=== PATIENT | male | born 1970 | race Caucasian/White ===

== ENCOUNTER 2017-12-25 07:27 | Emergency (ER) | payer MEDICARE, MEDICAID ==
[~2017-12-25] VITALS: Ht 172.7 cm; Wt 94.0 kg
[~2017-12-25 07:27] MED LIST: OMEP20TA23 PO; QUET-1 PO
[2017-12-25 07:35] VITALS: BP 131/80
[2017-12-25] MEDS ORDERED: NAPR-56 PO (08:48)
== END 2017-12-25 08:58 | disposition home or self-care (01) ==
LOC: ER 07:28
DX: M75.82 Other shoulder lesions, left shoulder (principal); G89.29 Other chronic pain; K21.9 Gastro-esophageal reflux disease without esophagitis; F12.10 Cannabis abuse, uncomplicated; Z79.899 Other long term (current) drug therapy
CPT/HCPCS: 73030; 99284

== ENCOUNTER 2017-12-31 21:45 | Emergency (ER) | payer MEDICARE, MEDICAID ==
[~2017-12-31] VITALS: Ht 172.7 cm; Wt 95.0 kg
[~2017-12-31 21:45] MED LIST changes: +NAPR-56 PO
[2017-12-31] MEDS ORDERED: IBUP-1985 PO (22:14)
[2017-12-31 22:16] VITALS: BP 143/97
== END 2017-12-31 22:19 | disposition home or self-care (01) ==
LOC: ER 21:46
DX: R07.89 Other chest pain (principal); G89.29 Other chronic pain; K21.9 Gastro-esophageal reflux disease without esophagitis
CPT/HCPCS: 99282

== ENCOUNTER 2018-01-10 21:34 | Emergency (ER) | payer MEDICARE, MEDICAID ==
[~2018-01-10] VITALS: Ht 172.7 cm; Wt 94.5 kg
[~2018-01-10 21:34] MED LIST changes: +IBUP-1985 PO
[2018-01-10 22:26] LABS: BASOPHILS % (AUTO) 0.3 % (0-1); EOSINOPHILS # (AUTO) 0.3 X10'3 (0-0.9); EOSINOPHILS % (AUTO) 3.9 % (0-6); HEMATOCRIT 45.6 % (42.0-52.0); HEMOGLOBIN 15.9 g/dl (14.0-17.9); LYMPHOCYTES # (AUTO) 3.1 X10'3 (1.1-4.8); LYMPHOCYTES % (AUTO) 37.1 % (21-51); MEAN CORPUSCULAR HGB CONC 34.8 % (33.0-36.5); MEAN CORPUSCULAR VOLUME 89.2 FL (78-98); MEAN PLATELET VOLUME 6.6 FL (7.4-10.4); MONOCYTES # (AUTO) 0.8 X10'3 (0-0.9); NEUTROPHILS # (AUTO) 4.1 X10'3 (1.8-7.7); NEUTROPHILS % (AUTO) 48.7 % (42-75); PLATELET COUNT 310 X10'3 (140-440); RED BLOOD COUNT 5.12 X10'6 (4.70-6.10); RED CELL DISTRIBUTION WIDTH 13.4 % (11.5-14.5); WHITE BLOOD COUNT 8.4 X10'3 (4.5-11.0)
[2018-01-10 22:31] LABS: CLARITY,URINE CLEAR (Clear); COLOR,URINE STRAW (Yellow); GLUCOSE, URINE NEGATIVE (Neg); KETONES,URINE NEGATIVE (Neg); LEUKOCYTE ESTERASE ,URINE NEGATIVE (Neg); NITRITES, URINE NEGATIVE (Neg); PROTEIN,URINE NEGATIVE (Neg); UROBILINOGEN,URINE 0.2 E.U/dL (0.2-1.0)
[2018-01-10 22:36] LABS: OCCULT BLOOD,URINE TRACE-LYSED (Neg)
[2018-01-10 22:41] LABS: ALANINE AMINOTRANSFERASE 32 U/L (12-78); ALBUMIN 3.7 G/DL (3.4-5.0); ALKALINE PHOSPHATASE 98 IU/L (46-116); ANION GAP 9 (8-16); ASPARTATE AMINO TRANSFERASE 25 U/L (10-37); BILIRUBIN,TOTAL 0.2 MG/DL (0.1-1.0); BLOOD UREA NITROGEN 19 MG/DL (7-18); BUN/CREATININE RATIO 20.7 (5.4-32.0); CALCIUM 9.5 MG/DL (8.5-10.1); CHLORIDE 107 MMOL/L (99-107); CREATININE 0.92 MG/DL (0.60-1.10); GLUCOSE 92 MG/DL (70-104); POTASSIUM 3.9 MMOL/L (3.5-5.1); SODIUM 143 MMOL/L (135-145); TOTAL CARBON DIOXIDE 27.5 MMOL/L (24-32); TOTAL PROTEIN 7.3 G/DL (6.4-8.2); eGFR 89 ML/MIN
[2018-01-10 22:41] LABS: UA COLLECTION TYPE CLN CATCH MIDSTREAM
[2018-01-10 22:46] LABS: BACTERIA,URINE NONE SEEN /HPF (Neg); RBC,URINE 0-2 /HPF (0-2); SQUAMOUS EPITHELIAL CELL,UR FEW /LPF (FEW); WBC,URINE 0-4 /HPF (0-4)
[2018-01-10 23:07] LABS: D-DIMER 0.42 MG/L FEU (0-0.50)
[2018-01-10 23:14] LABS: LIPASE 157 U/L (73-393)
[2018-01-11] MEDS ORDERED: IBUP-1984 PO (00:05)
[2018-01-11 00:20] VITALS: BP 133/94
== END 2018-01-11 00:21 | disposition home or self-care (01) ==
LOC: ER 21:34
DX: M54.6 Pain in thoracic spine (principal); R10.11 Right upper quadrant pain; J44.9 Chronic obstructive pulmonary disease, unspecified; K21.9 Gastro-esophageal reflux disease without esophagitis; G89.29 Other chronic pain; M10.9 Gout, unspecified; F12.10 Cannabis abuse, uncomplicated; F17.200 Nicotine dependence, unspecified, uncomplicated; Z88.5 Allergy status to narcotic agent; Z79.899 Other long term (current) drug therapy
CPT/HCPCS: 36415; 71101; 76700; 80053; 81001; 83690; 84484; 85025; 85379; 85610; 93005; 99285

== ENCOUNTER 2018-02-14 18:19 | Emergency (ER) | payer MEDICARE, MEDICAID ==
[~2018-02-14] VITALS: Ht 175.3 cm; Wt 78.6 kg
[~2018-02-14 18:19] MED LIST changes: -NAPR-56 PO
[2018-02-14 18:43] VITALS: BP 119/87
== END 2018-02-14 19:43 | disposition left against medical advice (07) ==
LOC: ER 18:19
DX: Z00.8 Encounter for other general examination (principal); Z53.21 Procedure and treatment not carried out due to patient leaving prior to being seen by health care provider

== ENCOUNTER 2018-04-17 09:48 | Emergency (ER) | payer MEDICARE, MEDICAID ==
[~2018-04-17] VITALS: Ht 167.6 cm; Wt 98.0 kg
[2018-04-17 09:53] VITALS: BP 144/90
[2018-04-17] MEDS ORDERED: NAPR-56 PO (10:20)
[2018-04-17] MEDS ORDERED: ketorolac tromethamine 15mg/ml inj. IM ONE (10:20)
== END 2018-04-17 10:46 | disposition home or self-care (01) ==
LOC: ER 09:49
DX: M25.511 Pain in right shoulder (principal); J44.9 Chronic obstructive pulmonary disease, unspecified; K21.9 Gastro-esophageal reflux disease without esophagitis; G89.29 Other chronic pain; F17.200 Nicotine dependence, unspecified, uncomplicated; F12.90 Cannabis use, unspecified, uncomplicated; Z88.5 Allergy status to narcotic agent; Z79.899 Other long term (current) drug therapy
CPT/HCPCS: 96372; 99283; J1885

== ENCOUNTER 2018-04-27 08:05 | Emergency (ER) | payer MEDICARE, MEDICAID ==
[~2018-04-27] VITALS: Ht 175.3 cm; Wt 99.0 kg
[~2018-04-27 08:05] MED LIST changes: +NAPR-56 PO
[2018-04-27 08:28] VITALS: BP 125/80
[2018-04-27] MEDS ORDERED: HYDR-565 PO (09:31)
[2018-04-27] MEDS ORDERED: IBUP-1984 PO (09:31)
== END 2018-04-27 10:03 | disposition home or self-care (01) ==
LOC: ER 08:06
DX: M75.31 Calcific tendinitis of right shoulder (principal); J44.9 Chronic obstructive pulmonary disease, unspecified; K21.9 Gastro-esophageal reflux disease without esophagitis; G89.29 Other chronic pain; F12.90 Cannabis use, unspecified, uncomplicated; F17.200 Nicotine dependence, unspecified, uncomplicated; Z88.5 Allergy status to narcotic agent; Z79.899 Other long term (current) drug therapy
CPT/HCPCS: 73030; 99284; A4565

== ENCOUNTER 2018-05-03 19:01 | Emergency (ER) | payer MEDICARE, MEDICAID ==
[~2018-05-03] VITALS: Ht 175.3 cm; Wt 99.0 kg
[~2018-05-03 19:01] MED LIST changes: +HYDR-565 PO; +IBUP-1984 PO
[2018-05-03] MEDS ORDERED: ketorolac trometh inj. 60 MG/2 ML VIAL IM ONE (21:30)
[2018-05-03] MEDS ORDERED: HYDROcodone/acetaminophen 10/325mg tab PO ONE (21:30)
[2018-05-03 21:49] VITALS: BP 143/100
== END 2018-05-03 21:52 | disposition home or self-care (01) ==
LOC: ER 19:02
DX: M77.9 Enthesopathy, unspecified (principal); M25.511 Pain in right shoulder; J44.9 Chronic obstructive pulmonary disease, unspecified; G89.29 Other chronic pain; K21.9 Gastro-esophageal reflux disease without esophagitis; M10.9 Gout, unspecified; F17.200 Nicotine dependence, unspecified, uncomplicated; F12.90 Cannabis use, unspecified, uncomplicated; Z79.899 Other long term (current) drug therapy; Z88.5 Allergy status to narcotic agent
CPT/HCPCS: 96372; 99283; A4565; J1885

== ENCOUNTER → 2018-05-07 | Emergency (ER) | payer MEDICARE, MEDICAID ==
[~2018-05-07] VITALS: Ht 175.3 cm; Wt 91.0 kg
[2018-05-07 10:09] VITALS: BP 139/99
== END | disposition home or self-care (01) ==
LOC: ER 10:08
DX: M25.511 Pain in right shoulder (principal); J44.9 Chronic obstructive pulmonary disease, unspecified; K21.9 Gastro-esophageal reflux disease without esophagitis; G89.29 Other chronic pain; F12.90 Cannabis use, unspecified, uncomplicated; Z88.5 Allergy status to narcotic agent; Z79.899 Other long term (current) drug therapy
CPT/HCPCS: 99281

== ENCOUNTER 2018-05-19 23:00 | Inpatient (IN) | payer MEDICARE, OTHER ==
[~2018-05-19] VITALS: Ht 175.3 cm; Wt 113.0 kg
[~2018-05-19 23:00] MED LIST changes: +DOXE10CA3 PO; +LORA2TAB96 PO; -NAPR-56 PO; +OMEP-50 PO; +PRAZ2CAP2 PO
[2018-05-20] MEDS ORDERED: albuterol 2.5 MG/3 ML nebule NEB ONE (01:05)
[2018-05-20 02:45] VITALS: BP 130/83
[2018-05-20] MEDS ORDERED: ibuprofen tablet 400 MG TABLET PO PRN (02:45)
[2018-05-20] MEDS ORDERED: HYDROcodone/acetaminophen 10/325mg tab PO PRN (02:45)
[2018-05-20] MEDS ORDERED: LORazepam 1 MG tablet PO PRN (02:55)
[2018-05-20] MEDS ORDERED: pantoprazole 40mg Tablet.DR PO SCH (07:30)
[2018-05-20] MEDS ORDERED: NICOTINE POLACRILEX 4 MG LOZENGE BC PRN (07:55)
[2018-05-20 07:58] VITALS: BP 145/95
[2018-05-20] MEDS ORDERED: nicotine 21mg patch - 24 hr TD SCH ×2 (08:00)
[2018-05-20 08:43] LABS: CHOLESTEROL 176 MG/DL (0-200); HDL CHOLESTEROL 22 MG/DL (35-60); HEMOGLOBIN A1C 5.6 % (4.5-6.2); LDL CHOLESTEROL 89 MG/DL (50-100); TRIGLYCERIDES 488 MG/DL (20-135)
[2018-05-20] MEDS ORDERED: nicotine prolacrilex 2mg gum BC PRN (09:00)
[2018-05-20] MEDS ORDERED: ALBU18HF2 INH (20:22)
[2018-05-20] MEDS ORDERED: prazosin 1mg capsule PO SCH (21:00)
[2018-05-20] MEDS ORDERED: doxepin 10mg capsule PO SCH (21:00)
== END 2018-05-20 08:55 | disposition left against medical advice (07) | DRG 885 ==
LOC: ADULT MH 23:00
PROVIDERS: ADMIT Psychiatry & Neurology Psychiatry; ATTEND Psychiatry & Neurology Psychiatry
DX: F31.9 Bipolar disorder, unspecified (principal); R45.851 Suicidal ideations; F10.20 Alcohol dependence, uncomplicated; F12.20 Cannabis dependence, uncomplicated; F17.200 Nicotine dependence, unspecified, uncomplicated; F79 Unspecified intellectual disabilities; F81.9 Developmental disorder of scholastic skills, unspecified; M10.9 Gout, unspecified; Z59.0 Homelessness; Z81.8 Family history of other mental and behavioral disorders; Z82.0 Family history of epilepsy and other diseases of the nervous system; Z82.49 Family history of ischemic heart disease and other diseases of the circulatory system
CPT/HCPCS: 36415; 80061; 83036; 87070

== ENCOUNTER 2018-05-20 19:20 | Emergency (ER) | payer MEDICARE, OTHER ==
[~2018-05-20] VITALS: Ht 175.3 cm; Wt 90.9 kg
[~2018-05-20 19:20] MED LIST changes: -IBUP-1985 PO; -OMEP20TA23 PO; -QUET-1 PO
[2018-05-20] MEDS ORDERED: ipratropium/albuterol 3ml nebule NEB ONE (20:20)
[2018-05-20] MEDS ORDERED: ALBU18HF2 INH (20:22)
[2018-05-20 20:48] VITALS: BP 145/99
[2018-05-23] MEDS ORDERED: PRAZ1CAP5 PO (19:55)
[2018-05-23] MEDS ORDERED: DOXE10CA2 (19:55)
[2018-05-23] MEDS ORDERED: LORA2TAB (19:55)
== END 2018-05-20 20:50 | disposition home or self-care (01) ==
LOC: ER 19:20
DX: R06.02 Shortness of breath (principal); R05 Cough; J44.9 Chronic obstructive pulmonary disease, unspecified; K21.9 Gastro-esophageal reflux disease without esophagitis; G89.29 Other chronic pain; F17.210 Nicotine dependence, cigarettes, uncomplicated; F12.90 Cannabis use, unspecified, uncomplicated; Z59.0 Homelessness; Z88.5 Allergy status to narcotic agent; Z79.899 Other long term (current) drug therapy
CPT/HCPCS: 93005; 94640; 94760; 99283

== ENCOUNTER 2018-05-21 17:45 | Emergency (ER) | payer MEDICARE, OTHER ==
[~2018-05-21] VITALS: Ht 175.3 cm; Wt 90.9 kg
[~2018-05-21 17:45] MED LIST changes: +ALBU18HF2 INH
[2018-05-21 18:15] LABS: BASOPHILS % (AUTO) 0.4 % (0-1); EOSINOPHILS # (AUTO) 0.2 X10'3 (0-0.9); EOSINOPHILS % (AUTO) 1.9 % (0-6); HEMATOCRIT 45.9 % (42.0-52.0); HEMOGLOBIN 15.9 g/dl (14.0-17.9); LYMPHOCYTES # (AUTO) 2.8 X10'3 (1.1-4.8); LYMPHOCYTES % (AUTO) 30.7 % (21-51); MEAN CORPUSCULAR HEMOGLOBIN 30.7 PG (27.0-31.0); MEAN CORPUSCULAR HGB CONC 34.6 % (33.0-36.5); MEAN CORPUSCULAR VOLUME 88.8 FL (78-98); MEAN PLATELET VOLUME 6.4 FL (7.4-10.4); MONOCYTES # (AUTO) 1.1 X10'3 (0-0.9); MONOCYTES % (AUTO) 11.5 % (2-12); NEUTROPHILS # (AUTO) 5.1 X10'3 (1.8-7.7); NEUTROPHILS % (AUTO) 55.5 % (42-75); PLATELET COUNT 319 X10'3 (140-440); RED BLOOD COUNT 5.17 X10'6 (4.70-6.10); RED CELL DISTRIBUTION WIDTH 13.8 % (11.5-14.5); WHITE BLOOD COUNT 9.3 X10'3 (4.5-11.0)
[2018-05-21 18:23] LABS: INR 0.9 INR; PARTIAL THROMBOPLASTIN TIME 25 SECONDS (22-32); PROTHROMBIN TIME 9.8 SECONDS (9.0-12.0)
[2018-05-21 18:30] LABS: ALANINE AMINOTRANSFERASE 48 U/L (12-78); ALBUMIN 3.6 G/DL (3.4-5.0); ALKALINE PHOSPHATASE 100 IU/L (46-116); ANION GAP 8 (8-16); ASPARTATE AMINO TRANSFERASE 27 U/L (10-37); BILIRUBIN,TOTAL 0.2 MG/DL (0.1-1.0); BLOOD UREA NITROGEN 16 MG/DL (7-18); BUN/CREATININE RATIO 13.8 (5.4-32.0); CHLORIDE 105 MMOL/L (99-107); CREATININE 1.16 MG/DL (0.60-1.10); GLUCOSE 141 MG/DL (70-104); POTASSIUM 3.3 MMOL/L (3.5-5.1); SODIUM 140 MMOL/L (135-145); TOTAL CARBON DIOXIDE 26.7 MMOL/L (24-32); TOTAL PROTEIN 7.2 G/DL (6.4-8.2); eGFR 68 ML/MIN
[2018-05-21 20:13] VITALS: BP 135/88
[2018-05-23] MEDS ORDERED: PRAZ1CAP5 PO (19:55)
[2018-05-23] MEDS ORDERED: DOXE10CA2 (19:55)
[2018-05-23] MEDS ORDERED: LORA2TAB (19:55)
== END 2018-05-21 20:14 | disposition home or self-care (01) ==
LOC: ER 17:45
DX: R06.02 Shortness of breath (principal); J44.9 Chronic obstructive pulmonary disease, unspecified; K21.9 Gastro-esophageal reflux disease without esophagitis; G89.29 Other chronic pain; F12.90 Cannabis use, unspecified, uncomplicated; Z59.0 Homelessness; Z88.5 Allergy status to narcotic agent; Z88.8 Allergy status to other drugs, medicaments and biological substances; Z79.899 Other long term (current) drug therapy
CPT/HCPCS: 36415; 71045; 80053; 83880; 84484; 85025; 85610; 85730; 93005; 99285

== ENCOUNTER 2018-05-25 18:10 | Emergency (ER) | payer MEDICARE, OTHER ==
[~2018-05-25] VITALS: Ht 1670.2 cm; Wt 88.0 kg
[~2018-05-25 18:10] MED LIST changes: +DOXE10CA2; +LORA2TAB; +PRAZ1CAP5 PO
[2018-05-25] MEDS ORDERED: ARIP400S3 IM (18:54)
[2018-05-25 21:06] LABS: BASOPHILS % (AUTO) 0.5 % (0-1); EOSINOPHILS # (AUTO) 0.2 X10'3 (0-0.9); EOSINOPHILS % (AUTO) 2.4 % (0-6); HEMATOCRIT 45.8 % (42.0-52.0); LYMPHOCYTES # (AUTO) 2.5 X10'3 (1.1-4.8); MEAN CORPUSCULAR HEMOGLOBIN 30.7 PG (27.0-31.0); MEAN CORPUSCULAR HGB CONC 35.1 % (33.0-36.5); MEAN CORPUSCULAR VOLUME 87.7 FL (78-98); MEAN PLATELET VOLUME 6.1 FL (7.4-10.4); MONOCYTES # (AUTO) 0.9 X10'3 (0-0.9); MONOCYTES % (AUTO) 10.3 % (2-12); NEUTROPHILS # (AUTO) 5.5 X10'3 (1.8-7.7); NEUTROPHILS % (AUTO) 59.8 % (42-75); PLATELET COUNT 291 X10'3 (140-440); RED BLOOD COUNT 5.22 X10'6 (4.70-6.10); RED CELL DISTRIBUTION WIDTH 13.3 % (11.5-14.5); WHITE BLOOD COUNT 9.1 X10'3 (4.5-11.0)
[2018-05-25 21:09] LABS: CLARITY,URINE CLEAR (Clear); COLOR,URINE YELLOW (Yellow); GLUCOSE, URINE NEGATIVE (Neg); KETONES,URINE NEGATIVE (Neg); LEUKOCYTE ESTERASE ,URINE NEGATIVE (Neg); NITRITES, URINE NEGATIVE (Neg); OCCULT BLOOD,URINE NEGATIVE (Neg); PH,URINE 5.5 (4.8-8.0); PROTEIN,URINE 30 mg/dl (Neg)
[2018-05-25 21:11] LABS: UA COLLECTION TYPE NON-SPECIFIED
[2018-05-25] MEDS ORDERED: nicotine 21mg patch - 24 hr TD ONE (21:15)
[2018-05-25 21:17] LABS: BACTERIA,URINE FEW /HPF (Neg); RBC,URINE 0-2 /HPF (0-2)
[2018-05-25 21:18] LABS: CAL OXALATE CRYSTALS 2+ /HPF (NEGATIVE); MUCUS STRANDS MANY /LPF (Neg); SQUAMOUS EPITHELIAL CELL,UR FEW /LPF (FEW)
[2018-05-25 21:19] LABS: ALANINE AMINOTRANSFERASE 46 U/L (12-78); ALBUMIN 3.7 G/DL (3.4-5.0); ALKALINE PHOSPHATASE 100 IU/L (46-116); ANION GAP 10 (8-16); ASPARTATE AMINO TRANSFERASE 31 U/L (10-37); BILIRUBIN,TOTAL 0.5 MG/DL (0.1-1.0); BLOOD UREA NITROGEN 17 MG/DL (7-18); BUN/CREATININE RATIO 16.3 (5.4-32.0); CALCIUM 9.1 MG/DL (8.5-10.1); CHLORIDE 108 MMOL/L (99-107); CREATININE 1.04 MG/DL (0.60-1.10); GLUCOSE 99 MG/DL (70-104); POTASSIUM 3.9 MMOL/L (3.5-5.1); SODIUM 145 MMOL/L (135-145); TOTAL CARBON DIOXIDE 27.4 MMOL/L (24-32); TOTAL PROTEIN 7.4 G/DL (6.4-8.2); eGFR 77 ML/MIN
[2018-05-25 21:19] LABS: URINE AMPHETAMINE SCREEN NEGATIVE (Neg); URINE BARBITUATE SCREEN NEGATIVE (Neg); URINE BENZODIAZEPINES SCREEN NEGATIVE (Neg); URINE CANNABINOID SCREEN NEGATIVE (Neg); URINE COCAINE SCREEN NEGATIVE (Neg); URINE METHADONE SCREEN NEGATIVE (Neg); URINE OPIATE SCREEN NEGATIVE (Neg); URINE PHENCYCLIDINE SCREEN NEGATIVE (Neg)
[2018-05-25 21:28] LABS: ETHANOL < 0.010 GM/DL (0.0-0.010)
[2018-05-25] MEDS ORDERED: ibuprofen tablet 400 MG TABLET PO PRN (23:50)
[2018-05-25] MEDS ORDERED: HYDROcodone/acetaminophen 10/325mg tab PO PRN (23:50)
[2018-05-26] MEDS ORDERED: LORazepam 1 MG tablet PO PRN (00:15)
[2018-05-26] MEDS ORDERED: prazosin 1mg capsule PO SCH (00:15)
[2018-05-26] MEDS ORDERED: doxepin 10mg capsule PO SCH (00:29)
[2018-05-26] MEDS ORDERED: pantoprazole 40mg Tablet.DR PO SCH (07:30)
[2018-05-26 14:36] VITALS: BP 114/74
[2018-05-30] MEDS ORDERED: non-formulary drug (Aripiprazole (Abilify Maintena) 400 MG) IM SCH (08:00)
== END 2018-05-26 13:30 | disposition home or self-care (01) ==
LOC: ER 18:11
DX: F32.9 Major depressive disorder, single episode, unspecified (principal); R45.851 Suicidal ideations; J44.9 Chronic obstructive pulmonary disease, unspecified; K21.9 Gastro-esophageal reflux disease without esophagitis; F12.90 Cannabis use, unspecified, uncomplicated; Z59.0 Homelessness; Z88.5 Allergy status to narcotic agent; Z79.899 Other long term (current) drug therapy
CPT/HCPCS: 36415; 80053; 80305; 80320; 81001; 84443; 85025; 99284

== ENCOUNTER 2018-05-28 20:29 | Emergency (ER) | payer MEDICARE, OTHER ==
[~2018-05-28] VITALS: Ht 175.3 cm; Wt 98.0 kg
[~2018-05-28 20:29] MED LIST changes: +ARIP400S3 IM; -DOXE10CA2; -LORA2TAB; -PRAZ2CAP2 PO
[2018-05-28] MEDS ORDERED: normal saline 1000ml 1,000 ML IV ONE ×2 (21:05)
[2018-05-28 21:09] LABS: BASOPHILS % (AUTO) 0.5 % (0-1); EOSINOPHILS # (AUTO) 0.2 X10'3 (0-0.9); HEMATOCRIT 44.6 % (42.0-52.0); HEMOGLOBIN 15.6 g/dl (14.0-17.9); LYMPHOCYTES # (AUTO) 2.5 X10'3 (1.1-4.8); LYMPHOCYTES % (AUTO) 28.1 % (21-51); MEAN CORPUSCULAR HGB CONC 34.9 % (33.0-36.5); MEAN CORPUSCULAR VOLUME 88.7 FL (78-98); MEAN PLATELET VOLUME 6.8 FL (7.4-10.4); MONOCYTES # (AUTO) 0.9 X10'3 (0-0.9); MONOCYTES % (AUTO) 9.6 % (2-12); NEUTROPHILS # (AUTO) 5.4 X10'3 (1.8-7.7); NEUTROPHILS % (AUTO) 59.8 % (42-75); PLATELET COUNT 272 X10'3 (140-440); RED BLOOD COUNT 5.03 X10'6 (4.70-6.10); RED CELL DISTRIBUTION WIDTH 13.1 % (11.5-14.5)
[2018-05-28 21:24] LABS: ALANINE AMINOTRANSFERASE 49 U/L (12-78); ALBUMIN 3.6 G/DL (3.4-5.0); ALKALINE PHOSPHATASE 97 IU/L (46-116); ANION GAP 10 (8-16); ASPARTATE AMINO TRANSFERASE 29 U/L (10-37); BILIRUBIN,TOTAL 0.3 MG/DL (0.1-1.0); BLOOD UREA NITROGEN 15 MG/DL (7-18); BUN/CREATININE RATIO 12.7 (5.4-32.0); CALCIUM 8.5 MG/DL (8.5-10.1); CHLORIDE 106 MMOL/L (99-107); CREATININE 1.18 MG/DL (0.60-1.10); GLUCOSE 192 MG/DL (70-104); POTASSIUM 3.2 MMOL/L (3.5-5.1); SODIUM 140 MMOL/L (135-145); TOTAL CARBON DIOXIDE 23.8 MMOL/L (24-32); TOTAL PROTEIN 7.2 G/DL (6.4-8.2); eGFR 66 ML/MIN
[2018-05-28 21:33] LABS: ETHANOL < 0.010 GM/DL (0.0-0.010)
[2018-05-28 21:39] LABS: ACETAMINOPHEN < 2.0 UG/ML (10-30)
[2018-05-28] MEDS ORDERED: potassium Cl 20 mEq SR tablet PO STA (22:16)
[2018-05-28 23:11] LABS: CLARITY,URINE CLEAR (Clear); COLOR,URINE YELLOW (Yellow); GLUCOSE, URINE NEGATIVE (Neg); KETONES,URINE NEGATIVE (Neg); LEUKOCYTE ESTERASE ,URINE NEGATIVE (Neg); NITRITES, URINE NEGATIVE (Neg); OCCULT BLOOD,URINE NEGATIVE (Neg); PROTEIN,URINE 30 mg/dl (Neg)
[2018-05-28 23:12] LABS: URINE AMPHETAMINE SCREEN NEGATIVE (Neg); URINE BARBITUATE SCREEN NEGATIVE (Neg); URINE BENZODIAZEPINES SCREEN NEGATIVE (Neg); URINE CANNABINOID SCREEN NEGATIVE (Neg); URINE COCAINE SCREEN NEGATIVE (Neg); URINE METHADONE SCREEN NEGATIVE (Neg); URINE OPIATE SCREEN NEGATIVE (Neg); URINE PHENCYCLIDINE SCREEN NEGATIVE (Neg)
[2018-05-28 23:15] LABS: UA COLLECTION TYPE NON-SPECIFIED
[2018-05-28 23:16] LABS: BACTERIA,URINE FEW /HPF (Neg); MUCUS STRANDS MODERATE /LPF (Neg); RBC,URINE 0-2 /HPF (0-2); SQUAMOUS EPITHELIAL CELL,UR FEW /LPF (FEW); WBC,URINE 0-4 /HPF (0-4)
[2018-05-28 23:27] VITALS: BP 151/81
== END 2018-05-29 00:48 | disposition home or self-care (01) ==
LOC: ER 20:29
DX: T42.4X1A Poisoning by benzodiazepines, accidental (unintentional), initial encounter (principal); J44.9 Chronic obstructive pulmonary disease, unspecified; K21.9 Gastro-esophageal reflux disease without esophagitis; G89.29 Other chronic pain; F12.90 Cannabis use, unspecified, uncomplicated; Z59.0 Homelessness; Z88.5 Allergy status to narcotic agent; Z79.899 Other long term (current) drug therapy; Y92.89 Other specified places as the place of occurrence of the external cause
CPT/HCPCS: 36415; 80053; 80305; 80320; 80329; 81001; 82948; 84443; 85025; 96360; 99284; A4353; J7030

== ENCOUNTER 2018-05-29 21:43 | Emergency (ER) | payer MEDICARE, OTHER ==
[~2018-05-29] VITALS: Ht 597.6 cm; Wt 100.0 kg
[2018-05-29] MEDS ORDERED: nicotine 14mg patch - 24hr TD ONE (22:15)
[2018-05-29 22:38] LABS: BASOPHILS # (AUTO) 0.1 X10'3 (0-0.2); BASOPHILS % (AUTO) 0.7 % (0-1); EOSINOPHILS # (AUTO) 0.3 X10'3 (0-0.9); EOSINOPHILS % (AUTO) 3.8 % (0-6); HEMATOCRIT 43.4 % (42.0-52.0); LYMPHOCYTES # (AUTO) 2.8 X10'3 (1.1-4.8); LYMPHOCYTES % (AUTO) 37.1 % (21-51); MEAN CORPUSCULAR HEMOGLOBIN 30.6 PG (27.0-31.0); MEAN CORPUSCULAR HGB CONC 34.5 % (33.0-36.5); MEAN CORPUSCULAR VOLUME 88.7 FL (78-98); MEAN PLATELET VOLUME 6.5 FL (7.4-10.4); MONOCYTES # (AUTO) 0.9 X10'3 (0-0.9); MONOCYTES % (AUTO) 12.1 % (2-12); NEUTROPHILS # (AUTO) 3.6 X10'3 (1.8-7.7); NEUTROPHILS % (AUTO) 46.3 % (42-75); PLATELET COUNT 258 X10'3 (140-440); RED BLOOD COUNT 4.89 X10'6 (4.70-6.10); RED CELL DISTRIBUTION WIDTH 13.7 % (11.5-14.5); WHITE BLOOD COUNT 7.7 X10'3 (4.5-11.0)
[2018-05-29 22:47] LABS: ALANINE AMINOTRANSFERASE 47 U/L (12-78); ALBUMIN 3.5 G/DL (3.4-5.0); ALKALINE PHOSPHATASE 94 IU/L (46-116); ANION GAP 8 (8-16); ASPARTATE AMINO TRANSFERASE 24 U/L (10-37); BILIRUBIN,TOTAL 0.3 MG/DL (0.1-1.0); BLOOD UREA NITROGEN 15 MG/DL (7-18); BUN/CREATININE RATIO 14.6 (5.4-32.0); CALCIUM 8.9 MG/DL (8.5-10.1); CHLORIDE 107 MMOL/L (99-107); CREATININE 1.03 MG/DL (0.60-1.10); GLUCOSE 88 MG/DL (70-104); POTASSIUM 3.6 MMOL/L (3.5-5.1); SODIUM 143 MMOL/L (135-145); TOTAL CARBON DIOXIDE 27.6 MMOL/L (24-32); eGFR 78 ML/MIN
[2018-05-29 22:56] LABS: ETHANOL < 0.010 GM/DL (0.0-0.010)
[2018-05-29 23:03] LABS: ACETAMINOPHEN < 2.0 UG/ML (10-30)
[2018-05-29 23:18] LABS: URINE AMPHETAMINE SCREEN NEGATIVE (Neg); URINE BARBITUATE SCREEN NEGATIVE (Neg); URINE BENZODIAZEPINES SCREEN NEGATIVE (Neg); URINE CANNABINOID SCREEN NEGATIVE (Neg); URINE COCAINE SCREEN NEGATIVE (Neg); URINE METHADONE SCREEN NEGATIVE (Neg); URINE OPIATE SCREEN NEGATIVE (Neg); URINE PHENCYCLIDINE SCREEN NEGATIVE (Neg)
[2018-05-30] MEDS ORDERED: clonazePAM 1mg tablet PO PRN (00:25)
[2018-05-30] MEDS ORDERED: ibuprofen tablet 400 MG TABLET PO PRN (00:35)
[2018-05-30] MEDS: aripiprazole 5mg tablet PO SCH ×2 (07:24→08:00)
[2018-05-30] MEDS: pantoprazole 40mg Tablet.DR PO SCH ×2 (07:24→07:30)
[2018-05-30] MEDS: citalopram 20mg tablet PO SCH ×2 (07:24→08:00)
[2018-05-30 12:47] VITALS: BP 160/99
== END 2018-05-30 11:30 | disposition home or self-care (01) ==
LOC: EEVIPCON 21:44 → ER 21:44
DX: R45.851 Suicidal ideations (principal); J44.9 Chronic obstructive pulmonary disease, unspecified; K21.9 Gastro-esophageal reflux disease without esophagitis; F17.200 Nicotine dependence, unspecified, uncomplicated; F12.90 Cannabis use, unspecified, uncomplicated; F41.9 Anxiety disorder, unspecified; F32.9 Major depressive disorder, single episode, unspecified; Z88.5 Allergy status to narcotic agent; Z59.0 Homelessness; Z79.899 Other long term (current) drug therapy
CPT/HCPCS: 36415; 80053; 80305; 80320; 80329; 84443; 85025; 99284

== ENCOUNTER 2018-06-22 20:01 | Emergency (ER) | payer MEDICARE, OTHER ==
[~2018-06-22] VITALS: Ht 175.3 cm; Wt 83.5 kg
[2018-06-22] MEDS ORDERED: ipratropium/albuterol 3ml nebule NEB ONE (20:35)
[2018-06-22] MEDS ORDERED: predniSONE 20 mg tablet PO ONE (20:35)
[2018-06-22] MEDS ORDERED: ALBU6.7H INH (20:57)
[2018-06-22] MEDS ORDERED: PRED20TA PO (20:57)
[2018-06-22 21:06] VITALS: BP 146/90
== END 2018-06-22 21:07 | disposition home or self-care (01) ==
LOC: ER 20:01
DX: J44.1 Chronic obstructive pulmonary disease with (acute) exacerbation (principal); K21.9 Gastro-esophageal reflux disease without esophagitis; G89.29 Other chronic pain; F12.90 Cannabis use, unspecified, uncomplicated; F17.210 Nicotine dependence, cigarettes, uncomplicated; Z59.0 Homelessness; Z88.5 Allergy status to narcotic agent; Z79.899 Other long term (current) drug therapy
CPT/HCPCS: 71045; 93005; 94640; 94760; 99284; J7512

== ENCOUNTER 2018-06-30 11:22 | Emergency (ER) | payer MEDICARE, OTHER ==
[~2018-06-30] VITALS: Ht 175.3 cm; Wt 90.9 kg
[~2018-06-30 11:22] MED LIST changes: +ALBU6.7H INH; +CEPH500C5 PO
[2018-06-30] MEDS ORDERED: normal saline 1000ML IV soln IV ONE (12:20)
[2018-06-30] MEDS ORDERED: piperacillin/tazo 3.375gm/50ml 50 ML IV ONE (12:20)
[2018-06-30] MEDS ORDERED: ondansetron/PF 4mg/2ml inj IV ONE (12:40)
[2018-06-30] MEDS ORDERED: morphine 4 MG/ML inj SYRINge IV ONE (12:40)
[2018-06-30 12:46] LABS: BASOPHILS % (AUTO) 0.6 % (0-1); EOSINOPHILS # (AUTO) 0.3 X10'3 (0-0.9); EOSINOPHILS % (AUTO) 3.4 % (0-6); HEMATOCRIT 43.5 % (42.0-52.0); HEMOGLOBIN 15.1 g/dl (14.0-17.9); LYMPHOCYTES # (AUTO) 1.5 X10'3 (1.1-4.8); LYMPHOCYTES % (AUTO) 20.4 % (21-51); MEAN CORPUSCULAR HGB CONC 34.7 % (33.0-36.5); MEAN CORPUSCULAR VOLUME 89.3 FL (78-98); MEAN PLATELET VOLUME 6.6 FL (7.4-10.4); MONOCYTES # (AUTO) 0.8 X10'3 (0-0.9); MONOCYTES % (AUTO) 10.3 % (2-12); NEUTROPHILS # (AUTO) 4.9 X10'3 (1.8-7.7); NEUTROPHILS % (AUTO) 65.3 % (42-75); PLATELET COUNT 273 X10'3 (140-440); RED BLOOD COUNT 4.87 X10'6 (4.70-6.10); RED CELL DISTRIBUTION WIDTH 13.6 % (11.5-14.5); WHITE BLOOD COUNT 7.6 X10'3 (4.5-11.0)
[2018-06-30 12:49] LABS: CLARITY,URINE CLEAR (Clear); COLOR,URINE YELLOW (Yellow); GLUCOSE, URINE NEGATIVE (Neg); KETONES,URINE NEGATIVE (Neg); LEUKOCYTE ESTERASE ,URINE NEGATIVE (Neg); NITRITES, URINE NEGATIVE (Neg); OCCULT BLOOD,URINE NEGATIVE (Neg); PROTEIN,URINE NEGATIVE (Neg); UA COLLECTION TYPE CLN CATCH MIDSTREAM; UROBILINOGEN,URINE 0.2 E.U/dL (0.2-1.0)
[2018-06-30] MEDS ORDERED: acetaminophen 325mg tablet PO ONE (12:50)
[2018-06-30] MEDS ORDERED: ketorolac trometh. 30mg/ml inj. IV ONE (12:50)
[2018-06-30 12:56] LABS: PARTIAL THROMBOPLASTIN TIME 27 SECONDS (22-32)
[2018-06-30] MEDS ORDERED: vancomycin/NS 1 GM ADD-VANTAGE 250 ML X 1 DOSE IV ONE (13:00)
[2018-06-30 13:01] LABS: ALANINE AMINOTRANSFERASE 32 U/L (12-78); ALBUMIN 3.2 G/DL (3.4-5.0); ALBUMIN/GLOBULIN RATIO 0.8 (1.1-1.5); ALKALINE PHOSPHATASE 89 IU/L (46-116); ANION GAP 9 (8-16); ASPARTATE AMINO TRANSFERASE 21 U/L (10-37); BILIRUBIN,TOTAL 0.4 MG/DL (0.1-1.0); BLOOD UREA NITROGEN 12 MG/DL (7-18); BUN/CREATININE RATIO 13.5 (5.4-32.0); CALCIUM 9.2 MG/DL (8.5-10.1); CHLORIDE 104 MMOL/L (99-107); CREATININE 0.89 MG/DL (0.60-1.10); GLUCOSE 134 MG/DL (70-104); MAGNESIUM 1.9 MG/DL (1.5-2.4); POTASSIUM 3.3 MMOL/L (3.5-5.1); SODIUM 139 MMOL/L (135-145); TOTAL CARBON DIOXIDE 25.6 MMOL/L (24-32); TOTAL PROTEIN 7.2 G/DL (6.4-8.2); eGFR > 90 ML/MIN
[2018-06-30] MEDS ORDERED: DOXY100C43 PO (13:15)
[2018-06-30] MEDS ORDERED: CEPH250T PO (13:15)
[2018-06-30] MEDS ORDERED: HYDR-3965 PO (13:22)
[2018-06-30] MEDS ORDERED: ONDA8TAB9 PO (13:22)
[2018-06-30 15:11] VITALS: BP 134/91
== END 2018-06-30 15:24 | disposition home or self-care (01) ==
LOC: ER 11:23
DX: S50.812A Abrasion of left forearm, initial encounter (principal); L03.114 Cellulitis of left upper limb; J44.9 Chronic obstructive pulmonary disease, unspecified; K21.9 Gastro-esophageal reflux disease without esophagitis; G89.29 Other chronic pain; F12.90 Cannabis use, unspecified, uncomplicated; Z59.0 Homelessness; Z79.1 Long term (current) use of non-steroidal anti-inflammatories (NSAID); Z88.5 Allergy status to narcotic agent; Z79.2 Long term (current) use of antibiotics; Z79.899 Other long term (current) drug therapy; X58.XXXA Exposure to other specified factors, initial encounter; Y93.89 Activity, other specified; Y92.89 Other specified places as the place of occurrence of the external cause; Y99.8 Other external cause status
CPT/HCPCS: 36415; 71045; 80053; 81003; 83605; 83735; 84145; 85025; 85610; 85730; 87040; 93005; 96365; 96366; 96368; 96375; 99285; J1885; J2405; J2543; J3370; J7030

== ENCOUNTER 2018-07-06 17:16 | Emergency (ER) | payer MEDICARE, OTHER ==
[~2018-07-06] VITALS: Ht 175.3 cm; Wt 94.0 kg
[~2018-07-06 17:16] MED LIST changes: +CEPH250T PO; +DOXY100C43 PO; +HYDR-3965 PO; +ONDA8TAB9 PO
[2018-07-06] MEDS ORDERED: LORA2TAB96 PO (17:43)
[2018-07-06 18:24] VITALS: BP 115/86
== END 2018-07-06 18:35 | disposition home or self-care (01) ==
LOC: ER 17:17
DX: F31.9 Bipolar disorder, unspecified (principal); F41.9 Anxiety disorder, unspecified; J44.9 Chronic obstructive pulmonary disease, unspecified; K21.9 Gastro-esophageal reflux disease without esophagitis; G89.29 Other chronic pain; F12.90 Cannabis use, unspecified, uncomplicated; Z76.0 Encounter for issue of repeat prescription; Z59.0 Homelessness; Z88.5 Allergy status to narcotic agent; Z79.899 Other long term (current) drug therapy
CPT/HCPCS: 99283

== ENCOUNTER 2018-07-15 00:24 | Emergency (ER) | payer MEDICARE, OTHER ==
[~2018-07-15] VITALS: Ht 175.3 cm; Wt 90.9 kg
[~2018-07-15 00:24] MED LIST changes: -CEPH250T PO; -DOXY100C43 PO
[2018-07-15] MEDS ORDERED: albuterol 2.5 MG/3 ML nebule NEB ONE (00:45)
[2018-07-15] MEDS ORDERED: ALBU8HFA PO (01:26)
[2018-07-15 01:46] VITALS: BP 124/79
== END 2018-07-15 01:47 | disposition home or self-care (01) ==
LOC: ER 00:25
DX: S30.811A Abrasion of abdominal wall, initial encounter (principal); J44.1 Chronic obstructive pulmonary disease with (acute) exacerbation; K21.9 Gastro-esophageal reflux disease without esophagitis; G89.29 Other chronic pain; M10.9 Gout, unspecified; F12.90 Cannabis use, unspecified, uncomplicated; Z59.0 Homelessness; Z88.5 Allergy status to narcotic agent; Z79.899 Other long term (current) drug therapy; Y04.0XXA Assault by unarmed brawl or fight, initial encounter; Y93.89 Activity, other specified; Y92.89 Other specified places as the place of occurrence of the external cause; Y99.9 Unspecified external cause status
CPT/HCPCS: 93005; 94640; 94760; 99284

== ENCOUNTER 2018-09-28 16:06 | Emergency (ER) | payer MEDICARE, MEDICAID ==
[~2018-09-28] VITALS: Ht 172.7 cm; Wt 101.3 kg
[~2018-09-28 16:06] MED LIST changes: -ALBU6.7H INH; -ARIP400S3 IM; +ARIP5TAB4 PO; +BUPR100T5 PO; -CEPH500C5 PO; -HYDR-3965 PO; -HYDR-565 PO; -IBUP-1984 PO; -LORA2TAB96 PO; -ONDA8TAB9 PO
[2018-09-28 17:05] LABS: CLARITY,URINE SLIGHTLY CLOUDY (Clear); COLOR,URINE YELLOW (Yellow); GLUCOSE, URINE NEGATIVE (Neg); KETONES,URINE NEGATIVE (Neg); LEUKOCYTE ESTERASE ,URINE NEGATIVE (Neg); NITRITES, URINE NEGATIVE (Neg); OCCULT BLOOD,URINE TRACE-INTACT (Neg); PH,URINE 6.5 (4.8-8.0); PROTEIN,URINE TRACE mg/dl (Neg)
[2018-09-28 17:08] LABS: BASOPHILS % (AUTO) 0.3 % (0-1); EOSINOPHILS # (AUTO) 0.2 X10'3 (0-0.9); EOSINOPHILS % (AUTO) 2.1 % (0-6); HEMATOCRIT 45.9 % (42.0-52.0); HEMOGLOBIN 15.6 g/dl (14.0-17.9); LYMPHOCYTES # (AUTO) 2.1 X10'3 (1.1-4.8); LYMPHOCYTES % (AUTO) 26.3 % (21-51); MEAN CORPUSCULAR HEMOGLOBIN 30.4 PG (27.0-31.0); MEAN CORPUSCULAR VOLUME 89.3 FL (78-98); MEAN PLATELET VOLUME 6.8 FL (7.4-10.4); MONOCYTES # (AUTO) 0.8 X10'3 (0-0.9); MONOCYTES % (AUTO) 10.1 % (2-12); NEUTROPHILS % (AUTO) 61.2 % (42-75); PLATELET COUNT 309 X10'3 (140-440); RED BLOOD COUNT 5.14 X10'6 (4.70-6.10); RED CELL DISTRIBUTION WIDTH 13.4 % (11.5-14.5); WHITE BLOOD COUNT 8.1 X10'3 (4.5-11.0)
[2018-09-28 17:13] LABS: UA COLLECTION TYPE CLN CATCH MIDSTREAM
[2018-09-28 17:15] LABS: BACTERIA,URINE FEW /HPF (Neg); RBC,URINE 0-2 /HPF (0-2); SQUAMOUS EPITHELIAL CELL,UR FEW /LPF (FEW); WBC,URINE 0-4 /HPF (0-4)
[2018-09-28 17:20] LABS: URINE AMPHETAMINE SCREEN NEGATIVE (Neg); URINE BARBITUATE SCREEN NEGATIVE (Neg); URINE BENZODIAZEPINES SCREEN NEGATIVE (Neg); URINE CANNABINOID SCREEN NEGATIVE (Neg); URINE COCAINE SCREEN NEGATIVE (Neg); URINE METHADONE SCREEN NEGATIVE (Neg); URINE OPIATE SCREEN NEGATIVE (Neg); URINE PHENCYCLIDINE SCREEN NEGATIVE (Neg)
[2018-09-28 17:25] LABS: ALANINE AMINOTRANSFERASE 42 U/L (12-78); ALBUMIN 3.4 G/DL (3.4-5.0); ALBUMIN/GLOBULIN RATIO 0.9 (1.1-1.5); ALKALINE PHOSPHATASE 105 IU/L (46-116); ANION GAP 10 (8-16); ASPARTATE AMINO TRANSFERASE 25 U/L (10-37); BILIRUBIN,TOTAL 0.5 MG/DL (0.1-1.0); BLOOD UREA NITROGEN 14 MG/DL (7-18); BUN/CREATININE RATIO 13.3 (5.4-32.0); CALCIUM 8.9 MG/DL (8.5-10.1); CHLORIDE 105 MMOL/L (99-107); CREATININE 1.05 MG/DL (0.60-1.10); GLUCOSE 106 MG/DL (70-104); POTASSIUM 3.3 MMOL/L (3.5-5.1); SODIUM 143 MMOL/L (135-145); TOTAL CARBON DIOXIDE 28.2 MMOL/L (24-32); TOTAL PROTEIN 7.1 G/DL (6.4-8.2); eGFR 76 ML/MIN
[2018-09-28 17:34] LABS: ETHANOL < 0.010 GM/DL (0.0-0.010)
[2018-09-28] MEDS ORDERED: nicotine 14mg patch - 24hr TD ONE (18:35)
[2018-09-28] MEDS ORDERED: prazosin 1mg capsule PO SCH (21:00)
[2018-09-28] MEDS ORDERED: doxepin 10mg capsule PO SCH (21:00)
[2018-09-28] MEDS: acetaminophen 325mg tablet PO PRN (21:30)
[2018-09-28] MEDS ORDERED: diphenhydrAMINE 25mg capsule PO ONE (23:15)
[2018-09-29] MEDS ORDERED: pantoprazole 40mg Tablet.DR PO SCH (07:30)
[2018-09-29] MEDS ORDERED: buPROPion SR 100mg tab PO SCH (08:00)
[2018-09-29] MEDS ORDERED: nicotine 21mg patch - 24 hr TD ONE (08:00)
[2018-09-29] MEDS: acetaminophen 325mg tablet PO PRN (08:05)
[2018-09-29 14:19] VITALS: BP 125/78
[2018-09-29] MEDS ORDERED: ALBU18HF2 INH (15:39)
[2018-09-29] MEDS ORDERED: ARIP5TAB4 PO (15:39)
== END 2018-09-29 14:21 | disposition home or self-care (01) ==
LOC: ER 16:07 → EEVIPCON 16:07 → ER 09-29 14:21
DX: F32.9 Major depressive disorder, single episode, unspecified (principal); F41.9 Anxiety disorder, unspecified; K21.9 Gastro-esophageal reflux disease without esophagitis; J44.9 Chronic obstructive pulmonary disease, unspecified; G89.29 Other chronic pain; M10.9 Gout, unspecified; F12.90 Cannabis use, unspecified, uncomplicated; Z59.0 Homelessness; Z88.6 Allergy status to analgesic agent; Z79.899 Other long term (current) drug therapy
CPT/HCPCS: 36415; 80053; 80305; 80320; 81001; 85025; 99285; Q0163

== ENCOUNTER 2018-09-29 12:00 | Inpatient (IN) | payer MEDICARE, MEDICAID ==
[~2018-09-29] VITALS: Ht 175.3 cm; Wt 99.5 kg
[2018-09-29] MEDS ORDERED: ALBU18HF2 INH (15:39)
[2018-09-29] MEDS ORDERED: ARIP5TAB4 PO (15:39)
[2018-09-29] MEDS ORDERED: mag hydrox/Alum hydrox/simeth 30ml oral suspension PO PRN (16:00)
[2018-09-29] MEDS ORDERED: magnesium hydroxide 30ml (MOM) UD suspension PO PRN (16:00)
[2018-09-29] MEDS ORDERED: acetaminophen 325mg tablet PO SCH (16:00)
[2018-09-29] MEDS: acetaminophen 325mg tablet PO PRN (16:17)
[2018-09-29 17:57] VITALS: BP 120/81
[2018-09-29] MEDS ORDERED: LORazepam 1 MG tablet PO PRN (18:55)
[2018-09-29 19:48] VITALS: BP 108/77
[2018-09-29] MEDS: prazosin 1mg capsule PO SCH (21:00)
[2018-09-29] MEDS ORDERED: buPROPion SR 100mg tab PO SCH (21:00)
[2018-09-29] MEDS ORDERED: traZODone 50mg tablet PO SCH (21:00)
[2018-09-29] MEDS ORDERED: doxepin 10mg capsule PO SCH (21:00)
[2018-09-29] MEDS: aripiprazole 5mg tablet PO SCH (21:18)
[2018-09-29] MEDS: pantoprazole 40mg Tablet.DR PO SCH (21:18)
[2018-09-29] MEDS: diphenhydrAMINE 25mg capsule PO PRN (21:18)
[2018-09-30] MEDS: acetaminophen 325mg tablet PO PRN (01:40)
[2018-09-30] MEDS ORDERED: LORazepam 0.5 MG tablet PO PRN (07:15)
[2018-09-30] MEDS ORDERED: NICOTINE POLACRILEX 4 MG LOZENGE BC PRN (07:15)
[2018-09-30] MEDS: naproxen sodium 220mg tablet PO PRN ×2 (07:44→17:06)
[2018-09-30 08:00] VITALS: BP 121/81
[2018-09-30] MEDS ORDERED: buPROPion SR 100mg tab PO SCH (08:00)
[2018-09-30] MEDS ORDERED: pantoprazole 40mg Tablet.DR PO SCH (08:00)
[2018-09-30] MEDS: buPROPion SR 100mg tab PO SCH (08:28)
[2018-09-30] MEDS: nicotine 21mg patch - 24 hr TD SCH (08:28)
[2018-09-30] MEDS: LORazepam 1 MG tablet PO SCH ×2 (15:55→21:00)
[2018-09-30] MEDS: albuterol 2.5 MG/3 ML nebule NEB PRN (19:46)
[2018-09-30 20:00] VITALS: BP 126/92
[2018-09-30 20:43] LABS: BASOPHILS % (AUTO) 0.7 % (0-1); EOSINOPHILS # (AUTO) 0.3 X10'3 (0-0.9); EOSINOPHILS % (AUTO) 4.2 % (0-6); HEMATOCRIT 45.4 % (42.0-52.0); HEMOGLOBIN 15.3 g/dl (14.0-17.9); LYMPHOCYTES # (AUTO) 3.2 X10'3 (1.1-4.8); LYMPHOCYTES % (AUTO) 45.5 % (21-51); MEAN CORPUSCULAR HEMOGLOBIN 30.1 PG (27.0-31.0); MEAN CORPUSCULAR HGB CONC 33.7 % (33.0-36.5); MEAN CORPUSCULAR VOLUME 89.3 FL (78-98); MEAN PLATELET VOLUME 6.5 FL (7.4-10.4); MONOCYTES # (AUTO) 0.7 X10'3 (0-0.9); NEUTROPHILS # (AUTO) 2.8 X10'3 (1.8-7.7); NEUTROPHILS % (AUTO) 39.6 % (42-75); PLATELET COUNT 282 X10'3 (140-440); RED BLOOD COUNT 5.08 X10'6 (4.70-6.10); RED CELL DISTRIBUTION WIDTH 13.4 % (11.5-14.5)
[2018-09-30] MEDS: doxepin 10mg capsule PO SCH (21:00)
[2018-09-30] MEDS: aripiprazole 5mg tablet PO SCH (21:00)
[2018-09-30] MEDS: prazosin 1mg capsule PO SCH (21:00)
[2018-09-30] MEDS: diphenhydrAMINE 25mg capsule PO PRN (21:01)
[2018-09-30] MEDS: pantoprazole 40mg Tablet.DR PO SCH (21:01)
[2018-09-30] MEDS ORDERED: potassium Cl 40MEQ/NS 500ml 500 ML IV PRN ×2 (21:10)
[2018-09-30] MEDS ORDERED: potassium Cl 20 mEq SR tablet PO PRN ×2 (21:10)
[2018-09-30] MEDS ORDERED: magnesium 4gm in 100ml NS 100 ML IV PRN (21:10)
[2018-09-30] MEDS ORDERED: magnesium Cl slow-release 64mg tablet PO PRN (21:10)
[2018-09-30 21:22] LABS: ALANINE AMINOTRANSFERASE 42 U/L (12-78); ALBUMIN 3.5 G/DL (3.4-5.0); ALKALINE PHOSPHATASE 85 IU/L (46-116); ANION GAP 7 (8-16); ASPARTATE AMINO TRANSFERASE 25 U/L (10-37); BILIRUBIN,TOTAL 0.3 MG/DL (0.1-1.0); BLOOD UREA NITROGEN 19 MG/DL (7-18); BUN/CREATININE RATIO 18.1 (5.4-32.0); CALCIUM 9.1 MG/DL (8.5-10.1); CHLORIDE 103 MMOL/L (99-107); CREATININE 1.05 MG/DL (0.60-1.10); GLUCOSE 139 MG/DL (70-104); SODIUM 138 MMOL/L (135-145); TOTAL CARBON DIOXIDE 27.9 MMOL/L (24-32); eGFR 76 ML/MIN
[2018-09-30] MEDS ORDERED: ipratropium/albuterol 3ml nebule NEB PRN (21:25)
[2018-10-01] MEDS: buPROPion SR 100mg tab PO SCH (07:52)
[2018-10-01] MEDS: docusate sod 100mg capsule PO SCH ×2 (07:52→19:59)
[2018-10-01] MEDS: LORazepam 1 MG tablet PO SCH ×2 (07:52→12:34)
[2018-10-01] MEDS: nicotine 21mg patch - 24 hr TD SCH (07:55)
[2018-10-01 08:00] VITALS: BP 125/73
[2018-10-01] MEDS: naproxen sodium 220mg tablet PO PRN (12:34)
[2018-10-01] MEDS: acetaminophen 325mg tablet PO PRN (15:33)
[2018-10-01 19:00] VITALS: BP 137/88
[2018-10-01] MEDS: LORazepam 0.5 MG tablet PO SCH (19:37)
[2018-10-01] MEDS: doxepin 10mg capsule PO SCH (20:00)
[2018-10-01] MEDS: pantoprazole 40mg Tablet.DR PO SCH (20:00)
[2018-10-01] MEDS: aripiprazole 5mg tablet PO SCH (20:00)
[2018-10-01] MEDS: prazosin 1mg capsule PO SCH (20:03)
[2018-10-02] MEDS: docusate sod 100mg capsule PO SCH ×2 (07:34→20:18)
[2018-10-02] MEDS: LORazepam 0.5 MG tablet PO SCH ×3 (07:35→20:18)
[2018-10-02] MEDS: buPROPion SR 100mg tab PO SCH ×2 (07:35→12:11)
[2018-10-02 08:56] VITALS: BP 123/81
[2018-10-02] MEDS: nicotine 21mg patch - 24 hr TD SCH (12:03)
[2018-10-02] MEDS: naproxen sodium 220mg tablet PO PRN (15:32)
[2018-10-02] MEDS: albuterol 2.5 MG/3 ML nebule NEB PRN (16:05)
[2018-10-02 20:00] VITALS: BP 107/63
[2018-10-02] MEDS: prazosin 1mg capsule PO SCH (20:17)
[2018-10-02] MEDS: doxepin 10mg capsule PO SCH (20:17)
[2018-10-02] MEDS: aripiprazole 5mg tablet PO SCH (20:18)
[2018-10-02] MEDS: pantoprazole 40mg Tablet.DR PO SCH (20:18)
[2018-10-02] MEDS ORDERED: nicotine 21mg patch - 24 hr TD ONE (21:20)
[2018-10-03] MEDS: buPROPion SR 100mg tab PO SCH ×2 (07:50→13:53)
[2018-10-03] MEDS: docusate sod 100mg capsule PO SCH ×2 (07:50→20:32)
[2018-10-03] MEDS: nicotine 21mg patch - 24 hr TD SCH (07:50)
[2018-10-03] MEDS: LORazepam 0.5 MG tablet PO SCH ×3 (07:50→20:32)
[2018-10-03 07:55] LABS: CHOL/HDL RATIO 8.2 (0.00-4.99); CHOLESTEROL 181 MG/DL (0-200); HDL CHOLESTEROL 22 MG/DL (35-60); LDL CHOLESTEROL 91 MG/DL (50-100); TRIGLYCERIDES 419 MG/DL (20-135)
[2018-10-03 07:58] LABS: HEMOGLOBIN A1C 5.7 % (4.5-6.2)
[2018-10-03] MEDS ORDERED: nicotine prolacrilex 2mg gum BC PRN (08:05)
[2018-10-03 08:29] VITALS: BP 98/69
[2018-10-03] MEDS ORDERED: NICOTINE POLACRILEX 2 MG LOZENGE MM PRN (09:02)
[2018-10-03] MEDS: naproxen sodium 220mg tablet PO PRN ×2 (09:18→18:45)
[2018-10-03] MEDS ORDERED: tuberculin, purif. prot. deriv. 5 units/0.1ml ID ONE (12:35)
[2018-10-03 20:00] VITALS: BP 133/66
[2018-10-03] MEDS: pantoprazole 40mg Tablet.DR PO SCH (20:31)
[2018-10-03] MEDS: prazosin 1mg capsule PO SCH (20:32)
[2018-10-03] MEDS: aripiprazole 5mg tablet PO SCH (20:32)
[2018-10-03] MEDS: doxepin 10mg capsule PO SCH (20:32)
[2018-10-04] MEDS: nicotine 21mg patch - 24 hr TD SCH (07:41)
[2018-10-04] MEDS: LORazepam 0.5 MG tablet PO SCH ×3 (07:41→20:20)
[2018-10-04] MEDS: docusate sod 100mg capsule PO SCH ×2 (07:41→20:20)
[2018-10-04] MEDS: buPROPion SR 100mg tab PO SCH ×2 (07:41→13:10)
[2018-10-04 08:36] VITALS: BP 122/78
[2018-10-04] MEDS: diphenhydrAMINE 25mg capsule PO PRN (16:25)
[2018-10-04] MEDS: acetaminophen 325mg tablet PO PRN (16:27)
[2018-10-04] MEDS: LORazepam 1 MG tablet PO PRN (17:48)
[2018-10-04 19:50] VITALS: BP 104/68
[2018-10-04] MEDS: pantoprazole 40mg Tablet.DR PO SCH (20:19)
[2018-10-04] MEDS: doxepin 10mg capsule PO SCH (20:20)
[2018-10-04] MEDS: prazosin 1mg capsule PO SCH (20:20)
[2018-10-04] MEDS: aripiprazole 5mg tablet PO SCH (21:00)
[2018-10-05] MEDS: LORazepam 1 MG tablet PO PRN (02:51)
[2018-10-05 08:00] VITALS: BP 104/66
[2018-10-05] MEDS: LORazepam 0.5 MG tablet PO SCH (08:42)
[2018-10-05] MEDS: docusate sod 100mg capsule PO SCH (08:42)
[2018-10-05] MEDS: buPROPion SR 100mg tab PO SCH (08:42)
[2018-10-05] MEDS: naproxen sodium 220mg tablet PO PRN (08:42)
[2018-10-05] MEDS: nicotine 21mg patch - 24 hr TD SCH (08:44)
== END 2018-10-05 11:30 | disposition left against medical advice (07) | DRG 885 ==
LOC: ADULT MH 12:00
PROVIDERS: ADMIT Psychiatry & Neurology Psychiatry; ATTEND Psychiatry & Neurology Psychiatry
DX: F33.2 Major depressive disorder, recurrent severe without psychotic features (principal); R45.851 Suicidal ideations; Z53.21 Procedure and treatment not carried out due to patient leaving prior to being seen by health care provider; F17.210 Nicotine dependence, cigarettes, uncomplicated; F70 Mild intellectual disabilities; F10.11 Alcohol abuse, in remission; M10.9 Gout, unspecified; F12.11 Cannabis abuse, in remission; F41.9 Anxiety disorder, unspecified; M19.90 Unspecified osteoarthritis, unspecified site; J44.9 Chronic obstructive pulmonary disease, unspecified; K59.00 Constipation, unspecified; Z59.0 Homelessness; Z91.14 Patient's other noncompliance with medication regimen; Z79.899 Other long term (current) drug therapy; Z88.5 Allergy status to narcotic agent; Z81.8 Family history of other mental and behavioral disorders; Z82.0 Family history of epilepsy and other diseases of the nervous system; Z82.49 Family history of ischemic heart disease and other diseases of the circulatory system; Z83.3 Family history of diabetes mellitus; Z71.6 Tobacco abuse counseling; Z71.51 Drug abuse counseling and surveillance of drug abuser
CPT/HCPCS: 36415; 71045; 80053; 80061; 83036; 83880; 85025; 87070; 94640; 94760; Q0163

== ENCOUNTER 2018-10-07 15:07 | Emergency (ER) | payer MEDICARE, MEDICAID ==
[~2018-10-07] VITALS: Ht 172.7 cm; Wt 101.3 kg
[2018-10-07 15:09] VITALS: BP 129/92
[2018-10-07] MEDS ORDERED: NAPR-56 PO (15:30)
== END 2018-10-07 15:41 | disposition home or self-care (01) ==
LOC: ER 15:07
DX: M79.604 Pain in right leg (principal); M79.605 Pain in left leg; R20.8 Other disturbances of skin sensation; J44.9 Chronic obstructive pulmonary disease, unspecified; K21.9 Gastro-esophageal reflux disease without esophagitis; G89.29 Other chronic pain; M10.9 Gout, unspecified; F12.90 Cannabis use, unspecified, uncomplicated; Z88.5 Allergy status to narcotic agent; Z79.899 Other long term (current) drug therapy; Z59.0 Homelessness
CPT/HCPCS: 99282

== ENCOUNTER 2018-10-09 17:00 | Emergency (ER) | payer MEDICARE, MEDICAID ==
[~2018-10-09] VITALS: Ht 172.7 cm; Wt 101.8 kg
[~2018-10-09 17:00] MED LIST changes: +NAPR-56 PO
[2018-10-09 17:23] VITALS: BP 130/92
== END 2018-10-09 19:41 | disposition home or self-care (01) ==
LOC: ER 17:01
DX: R05 Cough (principal); R06.02 Shortness of breath; R68.83 Chills (without fever); J44.9 Chronic obstructive pulmonary disease, unspecified; K21.9 Gastro-esophageal reflux disease without esophagitis; G89.29 Other chronic pain; F12.90 Cannabis use, unspecified, uncomplicated; Z59.0 Homelessness; Z88.5 Allergy status to narcotic agent; Z79.899 Other long term (current) drug therapy
CPT/HCPCS: 71045; 99283

== ENCOUNTER 2018-11-30 17:03 | Emergency (ER) | payer MEDICARE, MEDICAID ==
[~2018-11-30] VITALS: Ht 170.2 cm; Wt 90.0 kg
[~2018-11-30 17:03] MED LIST changes: -NAPR-56 PO
[2018-11-30 17:07] VITALS: BP 132/90
[2018-11-30] MEDS ORDERED: TAM75C PO (17:53)
[2018-11-30] MEDS ORDERED: GUAI120015 PO (17:53)
[2018-11-30] MEDS ORDERED: AZIT250T PO (17:53)
[2018-11-30] MEDS ORDERED: ALBU6.7H INH (17:53)
== END 2018-11-30 18:04 | disposition home or self-care (01) ==
LOC: ER 17:03
DX: J39.9 Disease of upper respiratory tract, unspecified (principal); J44.9 Chronic obstructive pulmonary disease, unspecified; K21.9 Gastro-esophageal reflux disease without esophagitis; G89.29 Other chronic pain; M10.9 Gout, unspecified; F12.90 Cannabis use, unspecified, uncomplicated; Z88.6 Allergy status to analgesic agent; Z79.899 Other long term (current) drug therapy; Z59.0 Homelessness
CPT/HCPCS: 99283

== ENCOUNTER 2019-08-25 01:21 | Emergency (ER) | payer MEDICARE, MEDICAID ==
[~2019-08-25] VITALS: Ht 172.7 cm; Wt 240.0 kg
[~2019-08-25 01:21] MED LIST changes: +ALBU6.7H9 INH; +ARIP5TAB14 PO; -ARIP5TAB4 PO; +GUAI120015 PO
[2019-08-25] MEDS ORDERED: LIDOcaine Viscous 15ml cup PO ONE (02:45)
[2019-08-25] MEDS ORDERED: bisacodyl 10mg suppository rectal RC ONE (02:45)
[2019-08-25] MEDS ORDERED: mag hydrox/Alum hydrox/simeth 30ml oral suspension PO ONE (02:45)
[2019-08-25] MEDS ORDERED: DOCU-148 PO (02:46)
[2019-08-25 03:18] VITALS: BP 160/90
== END 2019-08-25 02:55 | disposition home or self-care (01) ==
LOC: ER 01:23
DX: J02.9 Acute pharyngitis, unspecified (principal); K59.00 Constipation, unspecified; R13.10 Dysphagia, unspecified; R05 Cough; R42 Dizziness and giddiness; J44.9 Chronic obstructive pulmonary disease, unspecified; K21.9 Gastro-esophageal reflux disease without esophagitis; M19.90 Unspecified osteoarthritis, unspecified site; G89.29 Other chronic pain; M10.9 Gout, unspecified; F41.9 Anxiety disorder, unspecified; F31.9 Bipolar disorder, unspecified; F17.200 Nicotine dependence, unspecified, uncomplicated; Z88.6 Allergy status to analgesic agent; Z79.899 Other long term (current) drug therapy
CPT/HCPCS: 99283

== ENCOUNTER 2019-09-22 03:14 | Emergency (ER) | payer MEDICARE, MEDICAID ==
[~2019-09-22] VITALS: Ht 172.7 cm; Wt 109.0 kg
[~2019-09-22 03:14] MED LIST changes: +DOCU-148 PO
[2019-09-22 04:34] LABS: CLARITY,URINE CLEAR (Clear); COLOR,URINE YELLOW (Yellow); GLUCOSE, URINE NEGATIVE (Neg); KETONES,URINE NEGATIVE (Neg); LEUKOCYTE ESTERASE ,URINE NEGATIVE (Neg); NITRITES, URINE NEGATIVE (Neg); OCCULT BLOOD,URINE SMALL (Neg); PROTEIN,URINE NEGATIVE (Neg); UROBILINOGEN,URINE 0.2 E.U/dL (0.2-1.0)
[2019-09-22 04:35] LABS: UA COLLECTION TYPE CLN CATCH MIDSTREAM
[2019-09-22 04:39] LABS: BACTERIA,URINE NONE SEEN /HPF (Neg); RBC,URINE NONE SEEN /HPF (0-2); SQUAMOUS EPITHELIAL CELL,UR NONE SEEN /LPF (FEW); WBC,URINE NONE SEEN /HPF (0-4)
[2019-09-22 05:23] VITALS: BP 159/82
== END 2019-09-22 05:29 | disposition home or self-care (01) ==
LOC: ER 03:14
DX: R30.0 Dysuria (principal); M10.9 Gout, unspecified; J44.9 Chronic obstructive pulmonary disease, unspecified; K21.9 Gastro-esophageal reflux disease without esophagitis; M19.90 Unspecified osteoarthritis, unspecified site; G89.29 Other chronic pain; F41.9 Anxiety disorder, unspecified; F31.9 Bipolar disorder, unspecified; F17.200 Nicotine dependence, unspecified, uncomplicated; Z88.5 Allergy status to narcotic agent; Z79.899 Other long term (current) drug therapy
CPT/HCPCS: 29540; 36415; 81001; 87491; 99283

== ENCOUNTER 2019-11-08 13:59 | Emergency (ER) | payer MEDICARE, MEDICAID ==
[~2019-11-08] VITALS: Ht 175.3 cm; Wt 100.0 kg
[2019-11-08 14:15] VITALS: BP 149/101
--- NOTE | 2019-11-08 15:04 | NUR ---
PT SEEN AND DC'D BY PROVIDER
== END 2019-11-08 15:06 | disposition home or self-care (01) ==
LOC: ER 14:01
DX: R07.89 Other chest pain (principal); J44.9 Chronic obstructive pulmonary disease, unspecified; K21.9 Gastro-esophageal reflux disease without esophagitis; M19.90 Unspecified osteoarthritis, unspecified site; F41.9 Anxiety disorder, unspecified; F32.9 Major depressive disorder, single episode, unspecified; Z88.5 Allergy status to narcotic agent; Z79.899 Other long term (current) drug therapy
CPT/HCPCS: 99281

== ENCOUNTER 2019-12-23 10:48 | Emergency (ER) | payer MEDICAID, MEDICARE ==
[~2019-12-23] VITALS: Ht 172.7 cm; Wt 89.5 kg
[2019-12-23 10:50] VITALS: BP 123/81
[2019-12-23] MEDS ORDERED: AMOX-580 PO (11:18)
== END 2019-12-23 11:42 | disposition home or self-care (01) ==
LOC: ER 10:48
DX: J43.9 Emphysema, unspecified (principal); J32.9 Chronic sinusitis, unspecified; K21.9 Gastro-esophageal reflux disease without esophagitis; M19.90 Unspecified osteoarthritis, unspecified site; G89.29 Other chronic pain; F41.9 Anxiety disorder, unspecified; F31.9 Bipolar disorder, unspecified; Z88.5 Allergy status to narcotic agent; Z79.2 Long term (current) use of antibiotics; Z79.899 Other long term (current) drug therapy
CPT/HCPCS: 99283

== ENCOUNTER 2020-01-09 23:56 | Emergency (ER) | payer MEDICARE, MEDICAID ==
[~2020-01-09] VITALS: Ht 172.7 cm; Wt 88.6 kg
[2020-01-10 00:08] VITALS: BP 149/97
[2020-01-10] MEDS ORDERED: ipratropium/albuterol 3ml nebule NEB ONE (01:50)
== END 2020-01-10 02:30 | disposition home or self-care (01) ==
LOC: ER 23:56
DX: J20.9 Acute bronchitis, unspecified (principal); J44.9 Chronic obstructive pulmonary disease, unspecified; K21.9 Gastro-esophageal reflux disease without esophagitis; M19.90 Unspecified osteoarthritis, unspecified site; G89.29 Other chronic pain; M10.20 Drug-induced gout, unspecified site; F41.9 Anxiety disorder, unspecified; F31.9 Bipolar disorder, unspecified; F17.210 Nicotine dependence, cigarettes, uncomplicated; Z79.899 Other long term (current) drug therapy; Z88.5 Allergy status to narcotic agent
CPT/HCPCS: 94640; 94760; 99283

== ENCOUNTER 2020-02-25 13:45 | Emergency (ER) | payer MEDICARE, MEDICAID ==
[~2020-02-25] VITALS: Ht 172.7 cm; Wt 88.6 kg
[2020-02-25 13:54] VITALS: BP 143/90
--- NOTE | 2020-02-25 14:13 | NUR ---
pt is sitting on bed talking to friend on phone
--- NOTE | 2020-02-25 14:34 | NUR ---
pt has been evaluated by provider, pt is 49yo male c/o feeling paranoid and anxious off, compliant with taking psych meds "but they are not working", pt denies SI/HI, "I don't want to be on a 5150"
== END 2020-02-25 14:50 | disposition home or self-care (01) ==
LOC: ER 13:46
DX: F22 Delusional disorders (principal); F31.9 Bipolar disorder, unspecified; J43.9 Emphysema, unspecified; G89.29 Other chronic pain; F41.9 Anxiety disorder, unspecified; F12.90 Cannabis use, unspecified, uncomplicated; Z88.5 Allergy status to narcotic agent; Z79.899 Other long term (current) drug therapy
CPT/HCPCS: 99281

== ENCOUNTER 2020-03-23 17:38 | Emergency (ER) | payer MEDICARE, MEDICAID ==
[~2020-03-23] VITALS: Ht 172.7 cm; Wt 90.0 kg
[2020-03-23] MEDS ORDERED: aripiprazole 5mg tablet PO ONE (18:15)
[2020-03-23] MEDS ORDERED: LORazepam 2 mg/ml vial IM ONE (18:15)
[2020-03-23 18:22] VITALS: BP 128/105
--- NOTE | 2020-03-23 18:22 | NUR ---
pt asked to call his friend Laxmi to see if she could pick him up after his visit her number is [phone]
--- NOTE | 2020-03-23 19:08 | NUR ---
talked to friend tabitha and she is calling an uber for pt
== END 2020-03-23 19:23 | disposition home or self-care (01) ==
LOC: ER 17:39
DX: F41.9 Anxiety disorder, unspecified (principal); J45.909 Unspecified asthma, uncomplicated; J43.9 Emphysema, unspecified; K21.9 Gastro-esophageal reflux disease without esophagitis; M19.90 Unspecified osteoarthritis, unspecified site; G89.29 Other chronic pain; F12.90 Cannabis use, unspecified, uncomplicated; Z88.5 Allergy status to narcotic agent; Z79.899 Other long term (current) drug therapy
CPT/HCPCS: 96372; 99283; J2060

== ENCOUNTER 2020-03-27 16:46 | Emergency (ER) | payer MEDICARE, MEDICAID ==
[~2020-03-27] VITALS: Ht 172.7 cm; Wt 90.9 kg
[2020-03-27] MEDS ORDERED: acetaminophen 325mg tablet PO ONE (17:20)
--- NOTE | 2020-03-27 17:27 | NUR ---
PLEASE CALL WITH INFORMATION IN REGARDS TO PT ABIGAIL:[phone]
[2020-03-27 17:52] LABS: BASOPHILS % (AUTO) 0.4 % (0-1); EOSINOPHILS # (AUTO) 0.2 X10'3 (0-0.9); EOSINOPHILS % (AUTO) 1.8 % (0-6); HEMATOCRIT 48.3 % (42.0-52.0); HEMOGLOBIN 16.5 g/dl (14.0-17.9); LYMPHOCYTES # (AUTO) 2.5 X10'3 (1.1-4.8); LYMPHOCYTES % (AUTO) 24.1 % (21-51); MEAN CORPUSCULAR HEMOGLOBIN 30.6 PG (27.0-31.0); MEAN CORPUSCULAR VOLUME 89.9 FL (78-98); MEAN PLATELET VOLUME 6.7 FL (7.4-10.4); MONOCYTES # (AUTO) 1.3 X10'3 (0-0.9); MONOCYTES % (AUTO) 12.4 % (2-12); NEUTROPHILS # (AUTO) 6.3 X10'3 (1.8-7.7); NEUTROPHILS % (AUTO) 61.3 % (42-75); PLATELET COUNT 277 X10'3 (140-440); RED BLOOD COUNT 5.38 X10'6 (4.70-6.10); RED CELL DISTRIBUTION WIDTH 13.8 % (11.5-14.5); WHITE BLOOD COUNT 10.3 X10'3 (4.5-11.0)
[2020-03-27 18:09] LABS: ALANINE AMINOTRANSFERASE 35 U/L (12-78); ALBUMIN/GLOBULIN RATIO 1.1 (1.1-1.5); ALKALINE PHOSPHATASE 92 IU/L (46-116); ANION GAP 13 (8-16); ASPARTATE AMINO TRANSFERASE 28 U/L (10-37); BILIRUBIN,TOTAL 0.4 MG/DL (0.1-1.0); BLOOD UREA NITROGEN 22 MG/DL (7-18); BUN/CREATININE RATIO 22.4 (5.4-32.0); CALCIUM 9.9 MG/DL (8.5-10.1); CHLORIDE 103 MMOL/L (99-107); CREATININE 0.98 MG/DL (0.60-1.10); GLUCOSE 100 MG/DL (70-104); POTASSIUM 4.4 MMOL/L (3.5-5.1); SODIUM 140 MMOL/L (135-145); TOTAL CARBON DIOXIDE 24.1 MMOL/L (24-32); TOTAL PROTEIN 7.6 G/DL (6.4-8.2); eGFR 82 ML/MIN
[2020-03-27 18:46] VITALS: BP 119/76
== END 2020-03-27 18:51 | disposition home or self-care (01) ==
LOC: ER 16:46
DX: F41.9 Anxiety disorder, unspecified (principal); J45.909 Unspecified asthma, uncomplicated; J43.9 Emphysema, unspecified; K21.9 Gastro-esophageal reflux disease without esophagitis; M19.90 Unspecified osteoarthritis, unspecified site; G89.29 Other chronic pain; F31.9 Bipolar disorder, unspecified; F17.200 Nicotine dependence, unspecified, uncomplicated; F12.90 Cannabis use, unspecified, uncomplicated; Z88.5 Allergy status to narcotic agent; Z79.899 Other long term (current) drug therapy
CPT/HCPCS: 36415; 80053; 84443; 85025; 93005; 99284

== ENCOUNTER 2020-04-10 22:09 | Emergency (ER) | payer MEDICARE, MEDICAID ==
[~2020-04-10] VITALS: Ht 177.8 cm; Wt 90.0 kg
[2020-04-10 22:30] LABS: BASOPHILS % (AUTO) 0.6 % (0-1); EOSINOPHILS # (AUTO) 0.3 X10'3 (0-0.9); HEMOGLOBIN 15.3 g/dl (14.0-17.9); LYMPHOCYTES # (AUTO) 2.8 X10'3 (1.1-4.8); MEAN CORPUSCULAR HEMOGLOBIN 31.3 PG (27.0-31.0); MEAN CORPUSCULAR HGB CONC 34.8 g/dL (33.0-36.5); MEAN PLATELET VOLUME 6.6 FL (7.4-10.4); MONOCYTES % (AUTO) 12.6 % (2-12); NEUTROPHILS # (AUTO) 3.6 X10'3 (1.8-7.7); NEUTROPHILS % (AUTO) 46.8 % (42-75); PLATELET COUNT 246 X10'3 (140-440); RED BLOOD COUNT 4.89 X10'6 (4.70-6.10); RED CELL DISTRIBUTION WIDTH 13.7 % (11.5-14.5); WHITE BLOOD COUNT 7.8 X10'3 (4.5-11.0)
[2020-04-10] MEDS ORDERED: normal saline 1000ml 1,000 ML IV ONE (22:36)
[2020-04-10 22:37] LABS: ALANINE AMINOTRANSFERASE 33 U/L (12-78); ALBUMIN 3.6 G/DL (3.4-5.0); ALBUMIN/GLOBULIN RATIO 1.1 (1.1-1.5); ALKALINE PHOSPHATASE 82 IU/L (46-116); ANION GAP 9 (8-16); ASPARTATE AMINO TRANSFERASE 20 U/L (10-37); BILIRUBIN,TOTAL 0.2 MG/DL (0.1-1.0); BLOOD UREA NITROGEN 13 MG/DL (7-18); BUN/CREATININE RATIO 13.1 (5.4-32.0); CALCIUM 8.8 MG/DL (8.5-10.1); CHLORIDE 108 MMOL/L (99-107); CREATININE 0.99 MG/DL (0.60-1.10); ETHANOL < 0.010 GM/DL (0.0-0.010); GLUCOSE 114 MG/DL (70-104); POTASSIUM 3.6 MMOL/L (3.5-5.1); SODIUM 140 MMOL/L (135-145); TOTAL CARBON DIOXIDE 23.4 MMOL/L (24-32); TOTAL PROTEIN 6.8 G/DL (6.4-8.2); eGFR 81 ML/MIN
[2020-04-10] MEDS ORDERED: normal saline 1000ML IV soln IVB ONE (22:40)
--- NOTE | 2020-04-10 22:41 | NUR ---
Per Poison Control peak effects usually 1-2 hours. Advised of VS which were expected. States does not recommend use of Flumazenil due to risk of Sz with administration. States should be clear after approx. 2 hours unless EtOH involved.
[2020-04-10 22:44] LABS: CLARITY,URINE CLEAR (Clear); COLOR,URINE YELLOW (Yellow); GLUCOSE, URINE NEGATIVE (Neg); KETONES,URINE NEGATIVE (Neg); LEUKOCYTE ESTERASE ,URINE NEGATIVE (Neg); NITRITES, URINE NEGATIVE (Neg); OCCULT BLOOD,URINE TRACE-INTACT (Neg); PROTEIN,URINE NEGATIVE (Neg); UROBILINOGEN,URINE 0.2 E.U/dL (0.2-1.0)
[2020-04-10 22:49] LABS: LIPASE 140 U/L (73-393); MAGNESIUM 1.8 MG/DL (1.5-2.4)
[2020-04-10 22:52] LABS: UA COLLECTION TYPE STRAIGHT CATH
[2020-04-10 22:53] LABS: BACTERIA,URINE NONE SEEN /HPF (Neg); RBC,URINE 0-2 /HPF (0-2); SQUAMOUS EPITHELIAL CELL,UR NONE SEEN /LPF (FEW); WBC,URINE NONE SEEN /HPF (0-4)
[2020-04-10 22:56] LABS: URINE AMPHETAMINE SCREEN NEGATIVE (Neg); URINE BARBITUATE SCREEN NEGATIVE (Neg); URINE BENZODIAZEPINES SCREEN NEGATIVE (Neg); URINE CANNABINOID SCREEN NEGATIVE (Neg); URINE COCAINE SCREEN NEGATIVE (Neg); URINE METHADONE SCREEN NEGATIVE (Neg); URINE OPIATE SCREEN NEGATIVE (Neg); URINE PHENCYCLIDINE SCREEN NEGATIVE (Neg)
--- NOTE | 2020-04-10 23:48 | NUR ---
The patient moved to bed #24 in the ER overflow. He is somulent. Respirations approximately at 20.
--- NOTE | 2020-04-10 23:52 | NUR ---
02 Sats 93-95% on room air.
[2020-04-11] MEDS ORDERED: NAPR-1144 PO (00:48)
[2020-04-11] MEDS ORDERED: AMIT150T PO (00:48)
[2020-04-11] MEDS ORDERED: LORA2TAB96 PO (00:48)
[2020-04-11] MEDS ORDERED: PALI6TAB6 PO (00:48)
--- NOTE | 2020-04-11 00:50 | NUR ---
PT WITH SOME HOME MEDS IN HIS PERSONAL BELONGINGS. PT IS SLEEPING AT THIS TIME. UNABLE TO VERIFY ALL HOME MEDS. DOES SHOW RECENT PERSCRIPTIONS FOR: ATIVAN, NAPROXEN, PALIPERIDONE, AMATRIPTALINE. PT HAS COPD AND OLD PERSCRIPTIONS LISTED FOR INHALERS. WILL INTERVIEW PT FUTHER UPON HIS AWAKENING. PT REMAINS ON O2/HR MONITORING MD REQUESTED AND REQUESTS TO BE NOTIFIED IF PT DROPS BELOW 85%. PT WITH SOME SNORING EPISODES, BUT PRIMARILY AT 94% RA WITH RR 18 AND HR 84. CURRENTLY LYING ON HIS BACK WITH BLANKET COVERING TO HIS WAIST. SITTER AND RN WITHIN VIEW OF PT AAT.
--- NOTE | 2020-04-11 01:03 | NUR ---
PERSONAL MEDS REVIEWED BY MYSELF WITH GABY Sepulveda RN AND GABBY COUNTED. MEDS TAKEN TO PHARMACY
--- NOTE | 2020-04-11 01:33 | NUR ---
PTS O2 SATS REMAINS AROUND 94% ON RA. PT WITH INTERMITTENT COUGHING EPISODES OVER THE PAST 20 MINUTES AND HAS ROLLED FROM ONE SIDE TO THE OTHER A FEW TIMES. CURRENTLY LYING ON HIS LEFT SIDE WITH BLANKETS COVERING TO HIS WAIST. RR 22. PT SNORINIG REGULARLY.
--- NOTE | 2020-04-11 02:20 | NUR ---
DR. CHAVEZ UPDATED THAT PTS O2 SATS W/CONT MONITORING REMAINS AROUND 92-94% WITH SNORING AND OCCASIONAL APNIC EPISODES UP TO 10 SECONDS. CURRENT VSS. HE REPORTS OK TO TAKE PT OFF CONT O2/HR MONITORING.
--- NOTE | 2020-04-11 03:36 | NUR ---
PT REMAINS ASLEEP, LYING ON HIS RIGHT SIDE WITH NO BLANKETS ON. BLANKET PLACED OVER HIM. RR 16 AND IN NO DISTRESS. NO FURTHER COUGHING EPISODED NOTED
--- NOTE | 2020-04-11 04:30 | NUR ---
PT SLEEPING PEACFULLY ON HIS RIGHT SIDE RESP EVEN AND UNLABORED WILL CONTINUE TO MONITOR AND REASSESS
--- NOTE | 2020-04-11 05:31 | NUR ---
PT SLEEPING PEACEFULLY SUPINE . RESP EVEN AND UNLABORED AT THIS TIME PT IN THE DIRECT LINE OF STAFF WILL CONTINUE TO MONITOR AND REASSESS
--- NOTE | 2020-04-11 05:35 | NUR ---
packet faxed to [facility]
--- NOTE | 2020-04-11 05:35 | NUR ---
DIET ORDER FAXED TO PHARMACY Addendum: 04/11/20 at 0548 by LSTOCKTON DIET ORDER FAXED TO DIETARY
[2020-04-11 05:48] VITALS: BP 128/85
--- NOTE | 2020-04-11 05:48 | NUR ---
PT WAS AURSOABLE WITH VS . COUGHING . PATIENT ASKED TO COVER HIS MOUTH WHEN COUGHING . PT REPLIED OK .
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
--- NOTE | 2020-04-11 06:30 | NUR ---
PT IS RESTING IN BED. REPORT RECEIVED
[2020-04-11] MEDS ORDERED: naproxen 500mg tablet PO PRN (07:25)
--- NOTE | 2020-04-11 07:30 | NUR ---
PT IS AWAKE. ASKING WHEN HE CAN GO HOME. DENIES SI. STATES HE JUST HAD A BAD DAY
[2020-04-11] MEDS ORDERED: LORazepam 1 MG tablet PO PRN (07:40)
[2020-04-11] MEDS ORDERED: albuterol 2.5 MG/3 ML nebule NEB PRN (07:45)
[2020-04-11] MEDS ORDERED: PALIPERIDONE 3 MG TAB.ER.24 PO SCH (08:00)
--- NOTE | 2020-04-11 08:30 | NUR ---
PT IS AWAKE. ASKING WHEN HE CAN GO HOME. ASKING WHEN [facility] WILL BE HERE
[2020-04-11 09:01] LABS: ACETAMINOPHEN < 2.0 UG/ML (10-30)
--- NOTE | 2020-04-11 09:30 | NUR ---
PT IS REALLY WANTS TO GO HOME
--- NOTE | 2020-04-11 10:19 | NUR ---
PT IS GOING HOME. HE STATES HE KNOWS HOW TO TAKE THE BUS HOME
[2020-04-11] MEDS ORDERED: amitriptyline 50mg tablet PO SCH (21:00)
== END 2020-04-11 10:58 | disposition home or self-care (01) ==
LOC: ER 22:10
DX: T42.4X2A Poisoning by benzodiazepines, intentional self-harm, initial encounter (principal); T14.91XA Suicide attempt, initial encounter; J43.9 Emphysema, unspecified; K21.9 Gastro-esophageal reflux disease without esophagitis; M19.90 Unspecified osteoarthritis, unspecified site; R41.82 Altered mental status, unspecified; G89.29 Other chronic pain; F41.9 Anxiety disorder, unspecified; F31.9 Bipolar disorder, unspecified; F12.90 Cannabis use, unspecified, uncomplicated; Z88.5 Allergy status to narcotic agent; Z79.899 Other long term (current) drug therapy; Y92.89 Other specified places as the place of occurrence of the external cause
CPT/HCPCS: 36415; 80053; 80305; 80320; 80329; 81001; 83690; 83735; 85025; 93005; 96360; 99285; J7030; 99284

== ENCOUNTER 2020-04-14 20:21 | Emergency (ER) | payer MEDICARE, MEDICAID ==
[~2020-04-14] VITALS: Ht 172.7 cm; Wt 96.5 kg
[~2020-04-14 20:21] MED LIST changes: -ALBU6.7H9 INH; +AMIT150T PO; -ARIP5TAB14 PO; -BUPR100T5 PO; -DOCU-148 PO; -DOXE10CA3 PO; -GUAI120015 PO; +LORA2TAB96 PO; +NAPR-1144 PO; -OMEP-50 PO; +PALI6TAB6 PO; -PRAZ1CAP5 PO
--- NOTE | 2020-04-14 20:37 | NUR ---
Called poison control and opened a case on the patient. Notified poison control of 12x 2mg ativan tablet ingestion. Poison control reported that respiratory depression at this dose is uncommon and that it is usually well tolerated. Poison control recommended to watch the patient for 4-6 hours and conduct supportive care as necessary.
--- NOTE | 2020-04-14 20:40 | NUR ---
Poison control also recommended to monitor tylenol, aspirin, and ethanol levels as well as a full set of labs.
[2020-04-14] MEDS ORDERED: OMEP-50 PO (21:11)
[2020-04-14 21:26] LABS: BASOPHILS % (AUTO) 0.6 % (0-1); EOSINOPHILS # (AUTO) 0.3 X10'3 (0-0.9); EOSINOPHILS % (AUTO) 4.7 % (0-6); HEMOGLOBIN 14.7 g/dl (14.0-17.9); LYMPHOCYTES # (AUTO) 2.2 X10'3 (1.1-4.8); LYMPHOCYTES % (AUTO) 33.2 % (21-51); MEAN CORPUSCULAR HEMOGLOBIN 30.7 PG (27.0-31.0); MEAN CORPUSCULAR HGB CONC 34.3 g/dL (33.0-36.5); MEAN CORPUSCULAR VOLUME 89.6 FL (78-98); MEAN PLATELET VOLUME 6.4 FL (7.4-10.4); MONOCYTES # (AUTO) 0.7 X10'3 (0-0.9); MONOCYTES % (AUTO) 10.9 % (2-12); NEUTROPHILS # (AUTO) 3.4 X10'3 (1.8-7.7); NEUTROPHILS % (AUTO) 50.6 % (42-75); PLATELET COUNT 254 X10'3 (140-440); RED CELL DISTRIBUTION WIDTH 13.6 % (11.5-14.5); WHITE BLOOD COUNT 6.8 X10'3 (4.5-11.0)
[2020-04-14 21:39] LABS: ALANINE AMINOTRANSFERASE 27 U/L (12-78); ALBUMIN 3.3 G/DL (3.4-5.0); ALBUMIN/GLOBULIN RATIO 1.1 (1.1-1.5); ALKALINE PHOSPHATASE 84 IU/L (46-116); ANION GAP 4 (8-16); ASPARTATE AMINO TRANSFERASE 23 U/L (10-37); BILIRUBIN,TOTAL 0.2 MG/DL (0.1-1.0); BLOOD UREA NITROGEN 28 MG/DL (7-18); BUN/CREATININE RATIO 27.5 (5.4-32.0); CALCIUM 8.8 MG/DL (8.5-10.1); CHLORIDE 107 MMOL/L (99-107); CREATININE 1.02 MG/DL (0.60-1.10); GLUCOSE 98 MG/DL (70-104); POTASSIUM 3.6 MMOL/L (3.5-5.1); SODIUM 140 MMOL/L (135-145); TOTAL PROTEIN 6.4 G/DL (6.4-8.2); eGFR 78 ML/MIN
[2020-04-14 21:42] LABS: ETHANOL < 0.010 GM/DL (0.0-0.010)
--- NOTE | 2020-04-14 22:29 | NUR ---
Received report from ANGEL Kyle. Will assume care.
[2020-04-14 22:53] LABS: URINE AMPHETAMINE SCREEN NEGATIVE (Neg); URINE BARBITUATE SCREEN NEGATIVE (Neg); URINE BENZODIAZEPINES SCREEN NEGATIVE (Neg); URINE CANNABINOID SCREEN NEGATIVE (Neg); URINE COCAINE SCREEN NEGATIVE (Neg); URINE METHADONE SCREEN NEGATIVE (Neg); URINE OPIATE SCREEN NEGATIVE (Neg); URINE PHENCYCLIDINE SCREEN NEGATIVE (Neg)
--- NOTE | 2020-04-14 23:37 | NUR ---
The patient was brought over from main ER. He laid down and went right to sleep.
[2020-04-15] MEDS ORDERED: naproxen 500mg tablet PO PRN ×2 (01:00→01:07)
[2020-04-15] MEDS ORDERED: LORazepam 1 MG tablet PO PRN (01:00)
--- NOTE | 2020-04-15 02:07 | NUR ---
Patient is sleeping on his side with no apparent distress.
--- NOTE | 2020-04-15 03:40 | NUR ---
The patient is asleep on his left side. No s/s of distress.
[2020-04-15] MEDS ORDERED: albuterol 2.5 MG/3 ML nebule NEB PRN (04:00)
[2020-04-15 05:24] VITALS: BP 97/72
--- NOTE | 2020-04-15 05:47 | NUR ---
The patient continues to sleep.
--- NOTE | 2020-04-15 07:00 | NUR ---
PT IS SLEEPING
[2020-04-15 07:23] LABS: CLARITY,URINE CLEAR (Clear); COLOR,URINE STRAW (Yellow); GLUCOSE, URINE NEGATIVE (Neg); KETONES,URINE NEGATIVE (Neg); LEUKOCYTE ESTERASE ,URINE NEGATIVE (Neg); NITRITES, URINE NEGATIVE (Neg); OCCULT BLOOD,URINE NEGATIVE (Neg); PH,URINE 6.5 (4.8-8.0); PROTEIN,URINE NEGATIVE (Neg); UA COLLECTION TYPE STRAIGHT CATH; UROBILINOGEN,URINE 0.2 E.U/dL (0.2-1.0)
[2020-04-15] MEDS ORDERED: pantoprazole 40mg Tablet.DR PO SCH (08:00)
[2020-04-15] MEDS ORDERED: PALIPERIDONE 3 MG TAB.ER.24 PO SCH (08:00)
--- NOTE | 2020-04-15 08:00 | NUR ---
PT IS STILL SLEEPING. NO ISSUES AT THIS TIME
--- NOTE | 2020-04-15 09:18 | NUR ---
Pt f/u status provided [facility]; case considered closed.
--- NOTE | 2020-04-15 10:34 | NUR ---
pt is being dc. pt is getting ready to come home
[2020-04-15] MEDS ORDERED: amitriptyline 50mg tablet PO SCH (21:00)
== END 2020-04-15 10:47 | disposition home or self-care (01) ==
LOC: ER 20:22
DX: R45.851 Suicidal ideations (principal); T42.4X2A Poisoning by benzodiazepines, intentional self-harm, initial encounter; J43.9 Emphysema, unspecified; K21.9 Gastro-esophageal reflux disease without esophagitis; M19.90 Unspecified osteoarthritis, unspecified site; G89.29 Other chronic pain; F41.9 Anxiety disorder, unspecified; F31.9 Bipolar disorder, unspecified; F12.90 Cannabis use, unspecified, uncomplicated; Z88.5 Allergy status to narcotic agent; Z79.899 Other long term (current) drug therapy; Y92.89 Other specified places as the place of occurrence of the external cause
CPT/HCPCS: 36415; 80053; 80305; 80320; 81003; 85025; 99285

== ENCOUNTER 2020-04-19 01:21 | Emergency (ER) | payer MEDICARE, MEDICAID ==
[~2020-04-19] VITALS: Ht 172.7 cm; Wt 92.3 kg
[~2020-04-19 01:21] MED LIST changes: +OMEP-50 PO
[2020-04-19 01:26] VITALS: BP 163/93
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
--- NOTE | 2020-04-19 02:19 | NUR ---
PT WITH STABLE VS. HE REPORTS HE IS TOO ANXIOUS TO LAY ON THE GURNEY AND HE IS AMBULATING ROUND THE ROOM .AWAITING ER PROVIDER.
[2020-04-19] MEDS ORDERED: LORazepam 2 mg/ml vial IM ONE (02:40)
--- NOTE | 2020-04-19 03:00 | NUR ---
called taxi for pt will be here in 30 minutes
== END 2020-04-19 02:55 | disposition home or self-care (01) ==
LOC: ER 01:22
DX: F41.9 Anxiety disorder, unspecified (principal); J45.909 Unspecified asthma, uncomplicated; J44.9 Chronic obstructive pulmonary disease, unspecified; K21.9 Gastro-esophageal reflux disease without esophagitis; M19.90 Unspecified osteoarthritis, unspecified site; G89.29 Other chronic pain; F31.9 Bipolar disorder, unspecified; F17.200 Nicotine dependence, unspecified, uncomplicated; F12.90 Cannabis use, unspecified, uncomplicated; Z88.5 Allergy status to narcotic agent; Z79.899 Other long term (current) drug therapy
CPT/HCPCS: 96372; 99283; J2060

== ENCOUNTER 2020-05-16 00:44 | Emergency (ER) | payer MEDICARE, MEDICAID ==
[~2020-05-16] VITALS: Ht 175.3 cm; Wt 95.9 kg
[~2020-05-16 00:44] MED LIST changes: +ALBU6.7H9 INH; +ARIP5TAB14 PO; +BUPR100T5 PO; +DOCU-148 PO; +DOXE10CA3 PO; +GUAI120015 PO; +PRAZ1CAP5 PO
[2020-05-16 00:47] VITALS: BP 136/88
== END 2020-05-16 01:55 | disposition home or self-care (01) ==
LOC: ER 00:44
DX: R05 Cough (principal); R42 Dizziness and giddiness; J44.9 Chronic obstructive pulmonary disease, unspecified; K21.9 Gastro-esophageal reflux disease without esophagitis; G89.29 Other chronic pain; F31.9 Bipolar disorder, unspecified; F41.9 Anxiety disorder, unspecified; M10.9 Gout, unspecified; M19.90 Unspecified osteoarthritis, unspecified site; F12.90 Cannabis use, unspecified, uncomplicated; Z88.5 Allergy status to narcotic agent; Z79.899 Other long term (current) drug therapy
CPT/HCPCS: 71045; 99283

== ENCOUNTER 2020-05-29 23:41 | Emergency (ER) | payer MEDICARE, MEDICAID ==
[~2020-05-29] VITALS: Ht 175.3 cm; Wt 97.7 kg
[~2020-05-29 23:41] MED LIST changes: -ALBU6.7H9 INH; -ARIP5TAB14 PO; -BUPR100T5 PO; -DOCU-148 PO; -DOXE10CA3 PO; -GUAI120015 PO; -PRAZ1CAP5 PO
--- NOTE | 2020-05-29 23:53 | NUR ---
sPOKE DUNCAN Garcia AT [facility]. SHE SUGGESTED ASA, ACTEOMINOPHEN, CMP, CBC. SHE SAID MONITOR FOR INCREASED TACHYCARDIA, WIDENING QRS AND REPEAT EKG IN 4 HRS. DIAZEPAM IS WHAT WOULD BE RECOMMENDED FOR BENADRYL OVERDOSE SEIZURE PROTECTION
[2020-05-30 00:04] LABS: BASOPHILS # (AUTO) 0.1 X10'3 (0-0.2); BASOPHILS % (AUTO) 0.7 % (0-1); EOSINOPHILS # (AUTO) 0.2 X10'3 (0-0.9); EOSINOPHILS % (AUTO) 2.7 % (0-6); HEMATOCRIT 42.3 % (42.0-52.0); HEMOGLOBIN 14.8 g/dl (14.0-17.9); LYMPHOCYTES # (AUTO) 2.2 X10'3 (1.1-4.8); MEAN CORPUSCULAR HEMOGLOBIN 31.9 PG (27.0-31.0); MEAN CORPUSCULAR HGB CONC 34.9 g/dL (33.0-36.5); MEAN CORPUSCULAR VOLUME 91.3 FL (78-98); MEAN PLATELET VOLUME 6.3 FL (7.4-10.4); MONOCYTES # (AUTO) 0.8 X10'3 (0-0.9); NEUTROPHILS # (AUTO) 4.4 X10'3 (1.8-7.7); NEUTROPHILS % (AUTO) 57.6 % (42-75); PLATELET COUNT 266 X10'3 (140-440); RED BLOOD COUNT 4.63 X10'6 (4.70-6.10); RED CELL DISTRIBUTION WIDTH 13.7 % (11.5-14.5); WHITE BLOOD COUNT 7.7 X10'3 (4.5-11.0)
[2020-05-30 00:19] LABS: ALBUMIN 3.4 G/DL (3.4-5.0); ANION GAP 6 (8-16); ASPARTATE AMINO TRANSFERASE 23 U/L (10-37); BILIRUBIN,TOTAL 0.2 MG/DL (0.1-1.0); BLOOD UREA NITROGEN 16 MG/DL (7-18); BUN/CREATININE RATIO 15.2 (5.4-32.0); CALCIUM 8.9 MG/DL (8.5-10.1); CHLORIDE 107 MMOL/L (99-107); CREATININE 1.05 MG/DL (0.60-1.10); GLUCOSE 166 MG/DL (70-104); POTASSIUM 3.5 MMOL/L (3.5-5.1); SODIUM 142 MMOL/L (135-145); TOTAL CARBON DIOXIDE 28.7 MMOL/L (24-32); TOTAL PROTEIN 6.7 G/DL (6.4-8.2); eGFR 75 ML/MIN
[2020-05-30 00:20] LABS: ALANINE AMINOTRANSFERASE 35 U/L (12-78); ALKALINE PHOSPHATASE 74 IU/L (46-116)
[2020-05-30 00:28] LABS: ETHANOL < 0.010 GM/DL (0.0-0.010)
[2020-05-30 00:29] LABS: ACETAMINOPHEN < 2.0 UG/ML (10-30)
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
--- NOTE | 2020-05-30 00:45 | NUR ---
MD IS AWARE PT IS REFUSING URINE SAMPLE.
--- NOTE | 2020-05-30 01:11 | NUR ---
PT ASKING TO SPEAK TO THE WIND ENERGY TECHNICIAN - UPON ENTERING THE ROOM PT STATES THAT HE WANTS A DIFFERENT NURSE BECAUSE WE WON'T GIVE HIM SODA, COFFEE AND JUICE IN ORDER FOR HIM TO PROVIDE A URINE SAMPLE. I ASDVISED THE PATIENT THAT HE WAS NOT GETTING A NEW RN AND THAT HE WOULD BE GIVEN WATER TO HELP HE BE ABLE TO PRODUCE A URINE SAMPLE. PT STATES, "I KNOW MY BODY AND I WON'T BE ABLE TO PEE WITHOUT JUICE, SODA OR COFFEE" - ADVISED PT ONCE AGAIN THAT HE MAY HAVE MUCH WATER HE WOULD LIKE BUT HE IS NOT GETTING ANYTHING ELSE UNTIL HE PRODUCES A URINE SAMPLE. SECURITY IS AT BEDSIDE.
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
[2020-05-30] MEDS ORDERED: LORazepam 2 mg/ml vial IM ONE (01:20)
[2020-05-30] MEDS ORDERED: haloperidol lactate 5mg/ml inj IM ONE (01:20)
[2020-05-30] MEDS ORDERED: diphenhydrAMINE 50 mg/ml inj IM ONE (01:20)
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
[2020-05-30] MEDS ORDERED: LORAZEPAM PO PRN (05:25)
[2020-05-30] MEDS ORDERED: naproxen 500mg tablet PO PRN (05:25)
[2020-05-30] MEDS ORDERED: albuterol 2.5 MG/3 ML nebule NEB PRN (05:25)
--- NOTE | 2020-05-30 05:48 | NUR ---
2 LITERS OF NS IN. PT HAS CONDOM CATH ON. NO OUTPUT MD AWARE
--- NOTE | 2020-05-30 06:43 | NUR ---
PT IS AWAKE AND TALKING. ASKING FOR FOOD AND JUICE. INFORMED THE PT I AM ORDERING HIM BREAKFAST. PT IS STILL DROWSY AND HAS CONDOM CATH ON.
--- NOTE | 2020-05-30 06:57 | NUR ---
BEEN IN PT'S ROOM MANY TIMES IN THE LAST HOUR. HE IS CONSTANTLY ASKING FOR THE DOCTOR, HIS WALLET AND HIS PHONE AND BREAKFAST. INFORMED HIM WE ARE WAITING ON HIM TO PRODUCE URINE (PT GIVEN WATER), I HAVE NOT SEEN HIS WALLET OR PHONE IN THE ROOM AND THE DOCTOR SAW HIM EARLIER AND WILL SEE HIM ONCE ALL THE RESULTS ARE BACK AND WE HAVE A PLAN. PT OFF AND ON SLEEPING ON BED AND THEN WAKES UP AND GOES AND SITS ON THE END OF THE BED. PT HAS BEEN TOLD MANY TIMES NOT TO STAND UP OR GET OUT OF THE BED. PT'S MOUTH IS DRY. PT STATES HE FEELS MUCH BETTER THAN HE DID. SETTING BOUNDARIES WITH PT ON HIS REQUESTS AND EXPECTATIONS.
[2020-05-30] MEDS: pantoprazole 40mg Tablet.DR PO SCH ×2 (08:45→20:00)
[2020-05-30] MEDS: PALIPERIDONE 3 MG TAB.ER.24 PO SCH (08:45)
--- NOTE | 2020-05-30 09:14 | NUR ---
PT IS MORE AND MORE STABLE ON HIS FEET. STILL MUMBLES IN SPEAKING AND STILL NO URINE FROM CONDOM CATH AND IT IS STILL IN PLACE. PT HAS BEEN UP OUT OF BED MUTIPLE TIMES ON OWN. A BIT SHAKY BUT ABLE TO STAND AND FIX HIS PANTS. PT ATE ALL OF HIS BREAKFAST.
[2020-05-30 10:05] LABS: CLARITY,URINE CLEAR (Clear); COLOR,URINE YELLOW (Yellow); GLUCOSE, URINE NEGATIVE (Neg); KETONES,URINE NEGATIVE (Neg); LEUKOCYTE ESTERASE ,URINE NEGATIVE (Neg); NITRITES, URINE NEGATIVE (Neg); OCCULT BLOOD,URINE NEGATIVE (Neg); PROTEIN,URINE NEGATIVE (Neg); UROBILINOGEN,URINE 0.2 E.U/dL (0.2-1.0)
[2020-05-30 10:11] LABS: UA COLLECTION TYPE CONDOM CATH
[2020-05-30 10:13] LABS: URINE AMPHETAMINE SCREEN NEGATIVE (Neg); URINE BARBITUATE SCREEN NEGATIVE (Neg); URINE BENZODIAZEPINES SCREEN POSITIVE (Neg); URINE CANNABINOID SCREEN NEGATIVE (Neg); URINE COCAINE SCREEN NEGATIVE (Neg); URINE METHADONE SCREEN NEGATIVE (Neg); URINE OPIATE SCREEN NEGATIVE (Neg); URINE PHENCYCLIDINE SCREEN NEGATIVE (Neg)
--- NOTE | 2020-05-30 10:24 | NUR ---
Pt brought from room 3 in main ED to room 23 by security and tech, with no incident, requested phone was given phone
[2020-05-30] MEDS ORDERED: nicotine 21mg patch - 24 hr TD STA (10:34)
--- NOTE | 2020-05-30 10:48 | NUR ---
pt is supine in bed snoring, no longer agitated
--- NOTE | 2020-05-30 12:04 | NUR ---
PT IS SNORING, NO AGITATION OBSERVED
--- NOTE | 2020-05-30 13:12 | NUR ---
PATIENT IS LAYING ON HIS RIGHT SIDE ASLEEP, REGULAR BREATHING OBSERVED
--- NOTE | 2020-05-30 14:13 | NUR ---
PT IS ASLEEP REGULAR BREATHING OBSERVED, HE IS SNORING
--- NOTE | 2020-05-30 15:13 | NUR ---
PT IS LAYING ON HIS RIGHT SIDE ASLEEP, NO S/S OF AGITATION
--- NOTE | 2020-05-30 16:09 | NUR ---
pt is asleep, laying on his right side, regular breathing observed
--- NOTE | 2020-05-30 16:56 | NUR ---
pt is sleeping on his left side, regular breathing present
--- NOTE | 2020-05-30 18:07 | NUR ---
pt is laying on her right side, regular breathing observed, will continue to monitor
--- NOTE | 2020-05-30 19:16 | NUR ---
BREAKING PRIMARY RN; PT RESTING AND NOT IN ANY SIGNS OF DISTRESS OR DISCOMFORT. WILL CONTINUE TO MONITOR.
--- NOTE | 2020-05-30 20:37 | NUR ---
pt is sleeping on his right side, snoring quietly, no agitation apparent
[2020-05-30] MEDS ORDERED: amitriptyline 50mg tablet PO SCH (21:00)
--- NOTE | 2020-05-30 21:10 | NUR ---
pt is asleep, would not wake up for medications
--- NOTE | 2020-05-30 22:05 | NUR ---
BREAKING PRIMARY RN. PT SLEEPING WITH NO SIGNS OF DISTRESS OR DISCOMFORT. WILL CONTINUE TO MONITOR.
--- NOTE | 2020-05-30 22:54 | NUR ---
pt is still sleeping, unable to wake up to give medications, will give when he wakes up
--- NOTE | 2020-05-30 23:52 | NUR ---
TAKING OVER CARE FOR PT. PT CONTINUES TO REST WITH NO SIGNS OF DISTRESS OR DISCOMFORT. WILL CONTINUE TO MONITOR.
--- NOTE | 2020-05-31 00:39 | NUR ---
PT SLEEPING ON BACK. NO SIGNS OF DISTRESS OR DISCOMFORT. WILL CONTINUE TO MONITOR.
--- NOTE | 2020-05-31 01:19 | NUR ---
PATIENT ON LEFT SIDE,ASLEEP,RESPIRATIONS REGULAR.
--- NOTE | 2020-05-31 02:32 | NUR ---
PT CONTINUES TO SLEEP; RR REGULAR AND UNLABORED. WILL CONTINUE TO MONITOR.
--- NOTE | 2020-05-31 03:46 | NUR ---
PT CONTINUES TO SLEEP. NO SIGNS OF DISTRESS OR DISCOMFORT NOTED. WILL CONTINUE TO MONITOR.
--- NOTE | 2020-05-31 04:32 | NUR ---
PT CONTINUES TO SLEEP WITH NO SIGNS OF DISTRESS. WILL CONTINUE TO MONITOR.
--- NOTE | 2020-05-31 05:50 | NUR ---
The patient appears to be sleeping
--- NOTE | 2020-05-31 07:21 | NUR ---
asleep no resp dist
[2020-05-31] MEDS ORDERED: nicotine 21mg patch - 24 hr TD ONE (08:00)
--- NOTE | 2020-05-31 08:02 | NUR ---
asleep no resp dist
[2020-05-31] MEDS: pantoprazole 40mg Tablet.DR PO SCH (08:28)
[2020-05-31] MEDS: PALIPERIDONE 3 MG TAB.ER.24 PO SCH (08:28)
--- NOTE | 2020-05-31 09:30 | NUR ---
Resting in bed no resp distress
--- NOTE | 2020-05-31 10:17 | NUR ---
asleep no resp dist
--- NOTE | 2020-05-31 11:40 | NUR ---
Walking around sam no resp distress
--- NOTE | 2020-05-31 12:11 | NUR ---
in bed no resp dist
--- NOTE | 2020-05-31 12:33 | NUR ---
Maury Leavitt, brother, called
[2020-05-31 12:59] VITALS: BP 104/74
== END 2020-05-31 13:02 ==
LOC: ER 23:42
DX: T42.4X2A Poisoning by benzodiazepines, intentional self-harm, initial encounter (principal); T45.0X2A Poisoning by antiallergic and antiemetic drugs, intentional self-harm, initial encounter; R45.851 Suicidal ideations; J43.9 Emphysema, unspecified; K21.9 Gastro-esophageal reflux disease without esophagitis; M19.90 Unspecified osteoarthritis, unspecified site; G89.29 Other chronic pain; F31.9 Bipolar disorder, unspecified; F41.9 Anxiety disorder, unspecified; F12.90 Cannabis use, unspecified, uncomplicated; Z88.5 Allergy status to narcotic agent; Z79.899 Other long term (current) drug therapy; Y92.89 Other specified places as the place of occurrence of the external cause
CPT/HCPCS: 36415; 71046; 80053; 80178; 80305; 80320; 80329; 81003; 84443; 85025; 93005; 96372; 99285; J1200; J1630; J2060

== ENCOUNTER 2020-07-26 00:08 | Emergency (ER) | payer MEDICARE, MEDICAID ==
[~2020-07-26] VITALS: Ht 172.7 cm; Wt 100.9 kg
[2020-07-26 00:18] VITALS: BP 157/105
[2020-07-26] MEDS ORDERED: ipratropium/albuterol 3ml nebule NEB ONE (00:45)
[2020-07-26] MEDS ORDERED: predniSONE 20 mg tablet PO ONE (00:45)
[2020-07-26] MEDS ORDERED: PRED20TA PO (01:13)
== END 2020-07-26 01:53 | disposition home or self-care (01) ==
LOC: ER 00:10
DX: J44.1 Chronic obstructive pulmonary disease with (acute) exacerbation (principal); K21.9 Gastro-esophageal reflux disease without esophagitis; M19.90 Unspecified osteoarthritis, unspecified site; G89.29 Other chronic pain; F41.9 Anxiety disorder, unspecified; F31.9 Bipolar disorder, unspecified; F12.90 Cannabis use, unspecified, uncomplicated; Z88.5 Allergy status to narcotic agent; Z88.8 Allergy status to other drugs, medicaments and biological substances
CPT/HCPCS: 94640; 99283; J7512; 94760

== ENCOUNTER 2020-09-03 18:02 | Emergency (ER) | payer MEDICARE, MEDICAID ==
[~2020-09-03] VITALS: Ht 175.3 cm; Wt 103.1 kg
[2020-09-03 18:22] VITALS: BP 150/102
== END 2020-09-03 20:43 | disposition home or self-care (01) ==
LOC: ER 18:02
DX: J06.9 Acute upper respiratory infection, unspecified (principal); J44.9 Chronic obstructive pulmonary disease, unspecified; K21.9 Gastro-esophageal reflux disease without esophagitis; M19.90 Unspecified osteoarthritis, unspecified site; G89.29 Other chronic pain; M10.9 Gout, unspecified; F12.90 Cannabis use, unspecified, uncomplicated; Z88.5 Allergy status to narcotic agent; Z79.899 Other long term (current) drug therapy
CPT/HCPCS: 71046; 93005; 99283

== ENCOUNTER 2021-02-20 01:06 | Emergency (ER) | payer MEDICARE, MEDICAID ==
[~2021-02-20] VITALS: Ht 172.7 cm; Wt 107.7 kg
[2021-02-20 01:14] VITALS: BP 169/97
[2021-02-20] MEDS ORDERED: ALPRAZolam 0.5mg tablet PO ONE (01:40)
[2021-02-20] MEDS ORDERED: diazepam 5mg tablet PO ONE (01:40)
== END 2021-02-20 02:11 | disposition home or self-care (01) ==
LOC: ER 01:07
DX: F41.9 Anxiety disorder, unspecified (principal); J43.9 Emphysema, unspecified; K21.9 Gastro-esophageal reflux disease without esophagitis; M19.90 Unspecified osteoarthritis, unspecified site; G89.29 Other chronic pain; M10.9 Gout, unspecified; F31.9 Bipolar disorder, unspecified; F12.90 Cannabis use, unspecified, uncomplicated; Z88.5 Allergy status to narcotic agent; Z79.899 Other long term (current) drug therapy
CPT/HCPCS: 99283

== ENCOUNTER 2021-05-10 19:44 | Emergency (ER) | payer MEDICARE, MEDICAID ==
[~2021-05-10] VITALS: Ht 175.3 cm; Wt 107.7 kg
[2021-05-10 19:59] VITALS: BP 130/82
[2021-05-10] MEDS ORDERED: ALPR-624 PO (20:48)
[2021-05-10] MEDS ORDERED: COLC1TAB2 PO (20:48)
[2021-05-10] MEDS ORDERED: DIAZ10TA PO (20:48)
== END 2021-05-10 21:00 | disposition home or self-care (01) ==
LOC: ER 19:46
DX: M10.9 Gout, unspecified (principal); F41.9 Anxiety disorder, unspecified; K21.9 Gastro-esophageal reflux disease without esophagitis; M19.90 Unspecified osteoarthritis, unspecified site; F12.90 Cannabis use, unspecified, uncomplicated; G89.29 Other chronic pain; F32.9 Major depressive disorder, single episode, unspecified; J43.9 Emphysema, unspecified; Z79.899 Other long term (current) drug therapy; Z88.6 Allergy status to analgesic agent
CPT/HCPCS: 99281

== ENCOUNTER 2021-06-05 12:13 | Emergency (ER) | payer BC, MEDICAID ==
[~2021-06-05] VITALS: Ht 175.3 cm; Wt 109.1 kg
[~2021-06-05 12:13] MED LIST changes: +ALPR-624 PO; +COLC1TAB2 PO; +DIAZ10TA PO
[2021-06-05 12:21] VITALS: BP 133/88
[2021-06-05] MEDS ORDERED: TETanus/Pertussis (Acell)/Diphther VAC/PF (Tdap-Adult) 0.5ml syringe IMVAC ONE (12:55)
[2021-06-05] MEDS ORDERED: SULF1TAB48 PO (13:04)
== END 2021-06-05 13:29 | disposition home or self-care (01) ==
LOC: ER 12:15
DX: L02.416 Cutaneous abscess of left lower limb (principal); M79.652 Pain in left thigh; J43.9 Emphysema, unspecified; K21.9 Gastro-esophageal reflux disease without esophagitis; G89.29 Other chronic pain; M10.9 Gout, unspecified; F41.9 Anxiety disorder, unspecified; F31.9 Bipolar disorder, unspecified; F12.90 Cannabis use, unspecified, uncomplicated; Z88.5 Allergy status to narcotic agent; Z79.2 Long term (current) use of antibiotics; Z20.3 Contact with and (suspected) exposure to rabies; Z79.899 Other long term (current) drug therapy
CPT/HCPCS: 10060; 90471; 90715; 99283

== ENCOUNTER 2021-07-29 11:10 | Emergency (ER) | payer BC, MEDICAID ==
[~2021-07-29] VITALS: Ht 175.3 cm; Wt 100.0 kg
[2021-07-29 11:38] VITALS: BP 102/67
== END 2021-07-29 12:28 | disposition home or self-care (01) ==
LOC: ER 11:11
DX: R06.02 Shortness of breath (principal); Z20.822 Contact with and (suspected) exposure to COVID-19; J43.9 Emphysema, unspecified; M19.90 Unspecified osteoarthritis, unspecified site; G89.29 Other chronic pain; M81.0 Age-related osteoporosis without current pathological fracture; F12.90 Cannabis use, unspecified, uncomplicated; F17.200 Nicotine dependence, unspecified, uncomplicated; Z88.5 Allergy status to narcotic agent; Z79.899 Other long term (current) drug therapy
CPT/HCPCS: 36415; 99283; U0003; U0005

== ENCOUNTER 2021-08-10 18:13 | Emergency (ER) | payer BC, MEDICAID ==
[~2021-08-10] VITALS: Ht 175.3 cm; Wt 100.0 kg
[2021-08-10] MEDS ORDERED: HYDROcodone/acetaminophen 10/325mg tab PO ONE (18:30)
[2021-08-10] MEDS ORDERED: normal saline 1000ML IV soln IVB ONE (18:30)
[2021-08-10 19:17] LABS: EOSINOPHILS # (AUTO) 0.2 X10'3 (0-0.9); WHITE BLOOD COUNT 6.5 X10'3 (4.5-11.0)
[2021-08-10 19:19] LABS: BASOPHILS % (AUTO) 0.6 % (0-1); EOSINOPHILS % (AUTO) 3.4 % (0-6); HEMATOCRIT 45.1 % (42.0-52.0); HEMOGLOBIN 15.5 g/dl (14.0-17.9); LYMPHOCYTES % (AUTO) 31.2 % (21-51); MEAN CORPUSCULAR HGB CONC 34.4 g/dL (33.0-36.5); MEAN CORPUSCULAR VOLUME 90.1 FL (78-98); MEAN PLATELET VOLUME 7.4 FL (7.4-10.4); MONOCYTES # (AUTO) 0.8 X10'3 (0-0.9); MONOCYTES % (AUTO) 12.5 % (2-12); NEUTROPHILS # (AUTO) 3.4 X10'3 (1.8-7.7); NEUTROPHILS % (AUTO) 52.3 % (42-75); PLATELET COUNT 233 X10'3 (140-440); RED CELL DISTRIBUTION WIDTH 12.3 % (11.5-14.5)
[2021-08-10 19:39] LABS: ALANINE AMINOTRANSFERASE 49 U/L (12-78); ALBUMIN 3.2 G/DL (3.4-5.0); ALBUMIN/GLOBULIN RATIO 0.8 (1.1-1.5); ALKALINE PHOSPHATASE 153 IU/L (46-116); ANION GAP 6 (8-16); BILIRUBIN,TOTAL 0.6 MG/DL (0.1-1.0); BLOOD UREA NITROGEN 20 MG/DL (7-18); BUN/CREATININE RATIO 20.4 (5.4-32.0); CALCIUM 9.1 MG/DL (8.5-10.1); CHLORIDE 96 MMOL/L (99-107); CREATININE 0.98 MG/DL (0.60-1.10); SODIUM 129 MMOL/L (135-145); TOTAL PROTEIN 7.1 G/DL (6.4-8.2); TROPONIN I < 0.04 NG/ML (0.0-0.05); eGFR 81 ML/MIN
[2021-08-10 19:40] LABS: POTASSIUM 4.3 MMOL/L (3.5-5.1)
[2021-08-10 19:42] LABS: GLUCOSE 509 MG/DL (70-104)
--- NOTE | 2021-08-10 19:42 | NUR ---
glucose 509, reported to Shaggy ORTIZ.
[2021-08-10 19:48] LABS: ASPARTATE AMINO TRANSFERASE 27 U/L (10-37)
[2021-08-10] MEDS ORDERED: LIDOcaine 1% W/epiNEPHrine 1:200,000 10ml vial IJ ONE (20:25)
[2021-08-10] MEDS ORDERED: CEPH-585 PO (20:56)
[2021-08-10] MEDS ORDERED: METF-436 PO (20:56)
[2021-08-10] MEDS ORDERED: HYDR-3965 PO (20:56)
[2021-08-10] MEDS ORDERED: INSU100I31 SUBCUT (21:22)
[2021-08-10] MEDS ORDERED: METF-438 PO (21:23)
[2021-08-10] MEDS ORDERED: [UNRECOGNIZED DRUG - CODE] (21:31)
[2021-08-10 21:48] VITALS: BP 158/99
== END 2021-08-10 21:50 | disposition home or self-care (01) ==
LOC: ER 18:14
DX: S02.2XXA Fracture of nasal bones, initial encounter for closed fracture (principal); S01.21XA Laceration without foreign body of nose, initial encounter; R55 Syncope and collapse; F17.210 Nicotine dependence, cigarettes, uncomplicated; J43.9 Emphysema, unspecified; K21.9 Gastro-esophageal reflux disease without esophagitis; M19.90 Unspecified osteoarthritis, unspecified site; G89.29 Other chronic pain; M81.0 Age-related osteoporosis without current pathological fracture; F12.90 Cannabis use, unspecified, uncomplicated; Z79.4 Long term (current) use of insulin; Z79.899 Other long term (current) drug therapy; Z88.5 Allergy status to narcotic agent; W07.XXXA Fall from chair, initial encounter; Y93.89 Activity, other specified; Y92.89 Other specified places as the place of occurrence of the external cause; Y99.8 Other external cause status
CPT/HCPCS: 12011; 36415; 70450; 70486; 72125; 80053; 82948; 84484; 85025; 93005; 99285; J7030

== ENCOUNTER 2021-08-11 18:07 | Emergency (ER) | payer BC, MEDICAID ==
[~2021-08-11] VITALS: Ht 175.3 cm; Wt 106.4 kg
[~2021-08-11 18:07] MED LIST changes: +CEPH-585 PO; +HYDR-3965 PO; +INSU100I31 SUBCUT; +METF-436 PO; +METF-438 PO; +[UNRECOGNIZED DRUG - CODE]
[2021-08-11 19:45] VITALS: BP 113/70
== END 2021-08-11 20:08 | disposition home or self-care (01) ==
LOC: ER 18:07
DX: E11.9 Type 2 diabetes mellitus without complications (principal); J44.9 Chronic obstructive pulmonary disease, unspecified; K21.9 Gastro-esophageal reflux disease without esophagitis; M19.90 Unspecified osteoarthritis, unspecified site; G89.29 Other chronic pain; M10.9 Gout, unspecified; F12.90 Cannabis use, unspecified, uncomplicated; Z79.899 Other long term (current) drug therapy; Z88.5 Allergy status to narcotic agent
CPT/HCPCS: 82948; 99284

== ENCOUNTER 2021-08-15 07:47 | Emergency (ER) | payer BC, MEDICAID ==
[~2021-08-15] VITALS: Ht 175.3 cm; Wt 102.8 kg
[2021-08-15 07:58] VITALS: BP 128/99
== END 2021-08-15 10:02 | disposition home or self-care (01) ==
LOC: ER 07:48
DX: S02.2XXG Fracture of nasal bones, subsequent encounter for fracture with delayed healing (principal); R55 Syncope and collapse; J43.9 Emphysema, unspecified; K21.9 Gastro-esophageal reflux disease without esophagitis; E11.9 Type 2 diabetes mellitus without complications; M19.90 Unspecified osteoarthritis, unspecified site; G89.29 Other chronic pain; M10.9 Gout, unspecified; F41.9 Anxiety disorder, unspecified; F31.9 Bipolar disorder, unspecified; F17.200 Nicotine dependence, unspecified, uncomplicated; F12.90 Cannabis use, unspecified, uncomplicated; Z88.5 Allergy status to narcotic agent; Z79.2 Long term (current) use of antibiotics; Z79.4 Long term (current) use of insulin; Z79.899 Other long term (current) drug therapy; X58.XXXD Exposure to other specified factors, subsequent encounter
CPT/HCPCS: 99281

== ENCOUNTER 2022-04-16 14:41 | Emergency (ER) | payer BC, MEDICAID ==
[~2022-04-16] VITALS: Ht 175.3 cm; Wt 102.5 kg
[~2022-04-16 14:41] MED LIST changes: -HYDR-3965 PO; -OMEP-50 PO; +OMEP20CA16 PO
[2022-04-16 15:01] VITALS: BP 118/83
[2022-04-16] MEDS ORDERED: CEPH250T PO (15:28)
[2022-04-16] MEDS ORDERED: cephalexin 250mg capsule PO ONE (15:30)
== END 2022-04-16 15:49 | disposition home or self-care (01) ==
LOC: ER 14:41
DX: L08.9 Local infection of the skin and subcutaneous tissue, unspecified (principal); L73.1 Pseudofolliculitis barbae; J43.9 Emphysema, unspecified; K21.9 Gastro-esophageal reflux disease without esophagitis; E11.9 Type 2 diabetes mellitus without complications; M19.90 Unspecified osteoarthritis, unspecified site; G89.29 Other chronic pain; M10.9 Gout, unspecified; F41.9 Anxiety disorder, unspecified; F31.9 Bipolar disorder, unspecified; F12.90 Cannabis use, unspecified, uncomplicated; Z88.5 Allergy status to narcotic agent; Z79.2 Long term (current) use of antibiotics; Z79.899 Other long term (current) drug therapy
CPT/HCPCS: 99283

== ENCOUNTER 2022-05-06 01:27 | Emergency (ER) | payer BC, MEDICAID ==
[~2022-05-06] VITALS: Ht 175.3 cm; Wt 107.0 kg
--- NOTE | 2022-05-06 01:41 | NUR ---
PT STATES HE DOESN NOT WANT TO GET CHECKED IN FOR TREATMENT BECAUSE HIS BG IS 188
[2022-05-06 01:58] VITALS: BP 118/86
== END 2022-05-06 06:08 | disposition home or self-care (01) ==
LOC: ER 01:28
DX: E11.65 Type 2 diabetes mellitus with hyperglycemia (principal); R42 Dizziness and giddiness; J43.9 Emphysema, unspecified; K21.9 Gastro-esophageal reflux disease without esophagitis; E11.9 Type 2 diabetes mellitus without complications; M19.90 Unspecified osteoarthritis, unspecified site; G89.29 Other chronic pain; M10.9 Gout, unspecified; F41.9 Anxiety disorder, unspecified; F31.9 Bipolar disorder, unspecified; F12.90 Cannabis use, unspecified, uncomplicated; Z88.5 Allergy status to narcotic agent; Z79.2 Long term (current) use of antibiotics; Z79.4 Long term (current) use of insulin; Z79.899 Other long term (current) drug therapy
CPT/HCPCS: 82948; 99282; 99283

== ENCOUNTER 2022-05-07 16:00 | Emergency (ER) | payer BC, MEDICAID ==
[~2022-05-07] VITALS: Ht 175.3 cm; Wt 113.6 kg
[2022-05-07] MEDS ORDERED: normal saline 1000ML IV soln IV ONE (16:05)
[2022-05-07] MEDS ORDERED: acetaminophen 325mg tablet PO STA (16:05)
[2022-05-07 16:55] LABS: BASOPHILS % (AUTO) 0.4 % (0-1); EOSINOPHILS # (AUTO) 0.2 X10'3 (0-0.9); EOSINOPHILS % (AUTO) 2.2 % (0-6); HEMATOCRIT 47.6 % (42.0-52.0); HEMOGLOBIN 16.4 g/dl (14.0-17.9); LYMPHOCYTES # (AUTO) 2.4 X10'3 (1.1-4.8); LYMPHOCYTES % (AUTO) 29.5 % (21-51); MEAN CORPUSCULAR HEMOGLOBIN 30.4 PG (27.0-31.0); MEAN CORPUSCULAR HGB CONC 34.5 g/dL (33.0-36.5); MEAN CORPUSCULAR VOLUME 88.2 FL (78-98); MEAN PLATELET VOLUME 6.5 FL (7.4-10.4); MONOCYTES # (AUTO) 0.8 X10'3 (0-0.9); MONOCYTES % (AUTO) 10.2 % (2-12); NEUTROPHILS # (AUTO) 4.7 X10'3 (1.8-7.7); NEUTROPHILS % (AUTO) 57.7 % (42-75); PLATELET COUNT 264 X10'3 (140-440); RED CELL DISTRIBUTION WIDTH 13.6 % (11.5-14.5); WHITE BLOOD COUNT 8.2 X10'3 (4.5-11.0)
[2022-05-07 17:18] LABS: ALANINE AMINOTRANSFERASE 31 U/L (12-78); ALBUMIN 3.6 G/DL (3.4-5.0); ALKALINE PHOSPHATASE 90 IU/L (46-116); ANION GAP 7 (8-16); ASPARTATE AMINO TRANSFERASE 23 U/L (10-37); BILIRUBIN,TOTAL 0.4 MG/DL (0.1-1.0); BLOOD UREA NITROGEN 11 MG/DL (7-18); CHLORIDE 107 MMOL/L (99-107); CREATININE 0.92 MG/DL (0.60-1.10); GLUCOSE 124 MG/DL (70-104); LIPASE 272 U/L (73-393); POTASSIUM 3.9 MMOL/L (3.5-5.1); SODIUM 141 MMOL/L (135-145); TOTAL CARBON DIOXIDE 26.9 MMOL/L (24-32); TOTAL PROTEIN 7.1 G/DL (6.4-8.2); eGFR 87 ML/MIN
[2022-05-07] MEDS ORDERED: BEBTELOVIMAB 175 MG/2 ML VIAL IV ONE (17:20)
[2022-05-07] MEDS ORDERED: methylPREDNISolone sod succ 125mg/2ml vial IV ONE (17:20)
[2022-05-07] MEDS ORDERED: nicotine 21mg patch - 24 hr TD ONE (17:25)
[2022-05-07] MEDS ORDERED: LORazepam 2 mg/ml vial IV ONE ×2 (17:25→17:40)
--- NOTE | 2022-05-07 18:57 | NUR ---
Patient dumped food all over ground. This sign writer letterer or painter cleaned floor. Patient presents as disorganized and irritable.
[2022-05-07] MEDS ORDERED: diphenhydrAMINE 50 mg/ml inj IM ONE (19:35)
[2022-05-07] MEDS ORDERED: haloperidol lactate 5mg/ml inj IM ONE (19:35)
--- NOTE | 2022-05-07 19:47 | NUR ---
Patient became escalated after being told he could not walk out to the bathroom due to COVID restrictions, and would have to use a commode in the room. Patient started yelling loudly at staff. Patient began banging on doors and cursing at staff. Patient presented as disorganized. Patient given IM medication for patient and staff safety after consulation with Dr. Lakhani. Patient continued to yell at staff while receiving IM medication. Security was on standby.
[2022-05-07] MEDS ORDERED: quetiapine 100mg tablet PO STA (19:49)
[2022-05-07] MEDS ORDERED: traZODone 50mg tablet PO SCH (20:05)
--- NOTE | 2022-05-07 23:24 | NUR ---
Patient resting comfortably in bed. No issues.
--- NOTE | 2022-05-08 03:21 | NUR ---
pt resting quietly on gurney at this time
--- NOTE | 2022-05-08 05:32 | NUR ---
Patient resting comfortably. Chest rise and fall noted.
[2022-05-08] MEDS ORDERED: LANTUS SQ (08:38)
[2022-05-08] MEDS ORDERED: NPH, human insulin isophane inj. SQ SCH (08:45)
[2022-05-08] MEDS ORDERED: insulin regular, human 10 units/0.1 ml syringe IV SCH (09:05)
[2022-05-08] MEDS ORDERED: insulin regular, human 10 units/0.1 ml syringe IV ONE (09:05)
[2022-05-08] MEDS ORDERED: insulin regular, human 10 units/0.1 ml syringe SQ ONE (09:10)
[2022-05-08 10:22] LABS: CLARITY,URINE CLEAR (Clear); COLOR,URINE YELLOW (Yellow); GLUCOSE, URINE >=1000 mg/dl (Neg); KETONES,URINE TRACE mg/dl (Neg); LEUKOCYTE ESTERASE ,URINE NEGATIVE (Neg); NITRITES, URINE NEGATIVE (Neg); OCCULT BLOOD,URINE NEGATIVE (Neg); PROTEIN,URINE NEGATIVE (Neg); UROBILINOGEN,URINE 0.2 E.U/dL (0.2-1.0)
[2022-05-08 10:43] LABS: UA COLLECTION TYPE URINAL
[2022-05-08 10:44] LABS: SQUAMOUS EPITHELIAL CELL,UR FEW /LPF (FEW)
[2022-05-08 10:45] LABS: BACTERIA,URINE FEW /HPF (Neg); RBC,URINE 0-2 /HPF (0-2); WBC,URINE 0-4 /HPF (0-4)
[2022-05-08 13:06] LABS: URINE AMPHETAMINE SCREEN NEGATIVE (Neg); URINE BARBITUATE SCREEN NEGATIVE (Neg); URINE BENZODIAZEPINES SCREEN NEGATIVE (Neg); URINE CANNABINOID SCREEN NEGATIVE (Neg); URINE COCAINE SCREEN NEGATIVE (Neg); URINE METHADONE SCREEN NEGATIVE (Neg); URINE OPIATE SCREEN NEGATIVE (Neg); URINE PHENCYCLIDINE SCREEN NEGATIVE (Neg)
[2022-05-08 18:15] VITALS: BP 129/88
== END 2022-05-08 17:05 ==
LOC: ER 16:00
DX: U07.1 COVID-19 (principal); F20.9 Schizophrenia, unspecified; J44.9 Chronic obstructive pulmonary disease, unspecified; F31.9 Bipolar disorder, unspecified; K21.9 Gastro-esophageal reflux disease without esophagitis; Z88.5 Allergy status to narcotic agent; Z79.899 Other long term (current) drug therapy
CPT/HCPCS: 36415; 71045; 74176; 80053; 80305; 81001; 82948; 83605; 83690; 84145; 85025; 87040; 87502; 87503; 87635; 93005; 96372; 96374; 96375; 96376; 99285; C9803; J1200; J1630; J1815; J2060; J2930; J7030; Q0222

== ENCOUNTER 2022-05-16 00:59 | Emergency (ER) | payer BC, MEDICAID ==
[~2022-05-16] VITALS: Ht 175.3 cm; Wt 123.2 kg
[~2022-05-16 00:59] MED LIST changes: -ALPR-624 PO; -AMIT150T PO; -CEPH-585 PO; -COLC1TAB2 PO; -DIAZ10TA PO; -INSU100I31 SUBCUT; +LANTUS SQ; -LORA2TAB96 PO; -METF-436 PO; -METF-438 PO; -NAPR-1144 PO; -OMEP20CA16 PO; -PALI6TAB6 PO
[2022-05-16 01:07] VITALS: BP 159/105
== END 2022-05-16 01:58 | disposition home or self-care (01) ==
LOC: ER 01:00
DX: E11.65 Type 2 diabetes mellitus with hyperglycemia (principal); J44.9 Chronic obstructive pulmonary disease, unspecified; K21.9 Gastro-esophageal reflux disease without esophagitis; F31.9 Bipolar disorder, unspecified; F12.10 Cannabis abuse, uncomplicated; Z88.5 Allergy status to narcotic agent
CPT/HCPCS: 82948; 99281; 99283

== ENCOUNTER 2022-06-19 00:24 | Emergency (ER) | payer BC ==
[~2022-06-19] VITALS: Ht 175.3 cm; Wt 104.5 kg
[2022-06-19 00:33] VITALS: BP 140/89
== END 2022-06-19 00:48 | disposition left against medical advice (07) ==
LOC: ER 00:25
DX: F41.9 Anxiety disorder, unspecified (principal); Z53.21 Procedure and treatment not carried out due to patient leaving prior to being seen by health care provider; Z76.0 Encounter for issue of repeat prescription

== ENCOUNTER 2022-09-05 12:33 | Emergency (ER) | payer BC ==
[~2022-09-05] VITALS: Ht 175.3 cm; Wt 104.5 kg
[2022-09-05 13:51] VITALS: BP 123/91
== END 2022-09-05 15:41 | disposition home or self-care (01) ==
LOC: ER 12:35
DX: E11.65 Type 2 diabetes mellitus with hyperglycemia (principal); J43.9 Emphysema, unspecified; F41.9 Anxiety disorder, unspecified; F12.10 Cannabis abuse, uncomplicated; K21.9 Gastro-esophageal reflux disease without esophagitis; Z88.5 Allergy status to narcotic agent; Z79.899 Other long term (current) drug therapy; Z79.1 Long term (current) use of non-steroidal anti-inflammatories (NSAID)
CPT/HCPCS: 82948; 99283

== ENCOUNTER 2023-06-28 14:22 | Emergency (ER) | payer BC ==
[~2023-06-28] VITALS: Ht 175.3 cm; Wt 89.0 kg
[2023-06-28] MEDS ORDERED: nicotine 21mg patch - 24 hr TD ONE (15:25)
[2023-06-28 16:10] LABS: RED CELL DISTRIBUTION WIDTH 13.1 % (11.5-14.5); WHITE BLOOD COUNT 10.4 X10'3 (4.5-11.0)
[2023-06-28 16:11] LABS: BASOPHILS # (AUTO) 0.1 X10'3 (0-0.2); BASOPHILS % (AUTO) 0.5 % (0-1); EOSINOPHILS # (AUTO) 0.1 X10'3 (0-0.9); EOSINOPHILS % (AUTO) 0.9 % (0-6); HEMATOCRIT 49.8 % (42.0-52.0); HEMOGLOBIN 17.4 g/dl (14.0-17.9); LYMPHOCYTES # (AUTO) 2.4 X10'3 (1.1-4.8); LYMPHOCYTES % (AUTO) 22.8 % (21-51); MEAN CORPUSCULAR HEMOGLOBIN 31.8 PG (27.0-31.0); MEAN CORPUSCULAR VOLUME 90.8 FL (78-98); MEAN PLATELET VOLUME 6.8 FL (7.4-10.4); NEUTROPHILS # (AUTO) 6.9 X10'3 (1.8-7.7); NEUTROPHILS % (AUTO) 65.8 % (42-75); PLATELET COUNT 299 X10'3 (140-440); RED BLOOD COUNT 5.48 X10'6 (4.70-6.10)
[2023-06-28 16:21] LABS: ALANINE AMINOTRANSFERASE 40 U/L (12-78); ALBUMIN/GLOBULIN RATIO 1.1 (1.1-1.5); ALKALINE PHOSPHATASE 104 IU/L (46-116); ANION GAP 11 (8-16); ASPARTATE AMINO TRANSFERASE 24 U/L (10-37); BILIRUBIN,TOTAL 0.7 MG/DL (0.1-1.0); BLOOD UREA NITROGEN 14 MG/DL (7-18); BUN/CREATININE RATIO 15.2 (10.0-20.0); CALCIUM 9.5 MG/DL (8.5-10.1); CHLORIDE 103 MMOL/L (99-107); CREATININE 0.92 MG/DL (0.60-1.10); GLUCOSE 150 MG/DL (70-104); POTASSIUM 4.1 MMOL/L (3.5-5.1); SODIUM 140 MMOL/L (135-145); TOTAL CARBON DIOXIDE 26.3 MMOL/L (24-32); TOTAL PROTEIN 7.8 G/DL (6.4-8.2); eCRCL 95 ML/MIN; eGFR 87 ML/MIN
[2023-06-28 16:31] LABS: ETHANOL < 10 MG/DL (<10); THYROID STIMULATING HORMONE 0.99 ulU/ml (0.34-4.50)
[2023-06-28] MEDS ORDERED: HYDR-3686 PO (17:34)
[2023-06-28] MEDS ORDERED: DIAZ5TAB22 PO (17:34)
[2023-06-28] MEDS ORDERED: PALI234D IM (17:34)
[2023-06-28] MEDS ORDERED: OMEP20CA16 PO (17:34)
[2023-06-28] MEDS ORDERED: METF-900 PO (17:34)
--- NOTE | 2023-06-28 17:51 | NUR ---
Patient asking for dinner tray. RN ordered a late tray. Patient at a sandwich and cheese. Patient states he is still feeling suicidal. Continue to monitor.
[2023-06-28] MEDS ORDERED: diazepam 5mg tablet PO PRN (18:40)
--- NOTE | 2023-06-28 19:02 | NUR ---
Received pt sitting up in bed requesting his dinner tray. PT denies SI currently but states he has had thoughts of SI in the past. PT c/o anxiety states "I am shaking in bed" PRN valuim
--- NOTE | 2023-06-28 19:04 | NUR ---
PRN Valium given.
[2023-06-28] MEDS: metFORMIN 500mg tablet PO SCH (20:34)
[2023-06-28] MEDS ORDERED: hydrOXYzine 25 MG tablet PO SCH (21:00)
--- NOTE | 2023-06-28 22:22 | NUR ---
Pt appears to be sleeping.
--- NOTE | 2023-06-29 00:15 | NUR ---
Pt appears to be sleeping.
--- NOTE | 2023-06-29 03:32 | NUR ---
pt appears to be sleeping
[2023-06-29 05:57] VITALS: BP 104/67; PULSE 94; TEMP 98; O2SAT 97
[2023-06-29 06:09] LABS: BILIRUBIN,URINE NEGATIVE (Neg); CLARITY,URINE CLEAR (Clear); GLUCOSE, URINE NEGATIVE (Neg); KETONES,URINE NEGATIVE (Neg); LEUKOCYTE ESTERASE ,URINE NEGATIVE (Neg); NITRITES, URINE NEGATIVE (Neg); OCCULT BLOOD,URINE NEGATIVE (Neg); PROTEIN,URINE NEGATIVE (Neg)
[2023-06-29 06:13] LABS: COLOR,URINE DARK YELLOW (Yellow); UA COLLECTION TYPE CLN CATCH MIDSTREAM
--- NOTE | 2023-06-29 06:30 | NUR ---
Patient reclining in bed awake. No distress observed. Continue to monitor.
[2023-06-29 06:47] LABS: URINE AMPHETAMINE SCREEN NEGATIVE (Neg); URINE BARBITUATE SCREEN NEGATIVE (Neg); URINE BENZODIAZEPINES SCREEN POSITIVE (Neg); URINE CANNABINOID SCREEN POSITIVE (Neg); URINE COCAINE SCREEN NEGATIVE (Neg); URINE METHADONE SCREEN NEGATIVE (Neg); URINE OPIATE SCREEN NEGATIVE (Neg); URINE PHENCYCLIDINE SCREEN NEGATIVE (Neg)
--- NOTE | 2023-06-29 06:57 | NUR ---
Pt packet faxed to [facility].
[2023-06-29] MEDS ORDERED: pantoprazole 40mg Tablet.DR PO SCH (07:30)
[2023-06-29 07:35] VITALS: RESP 16
[2023-06-29] MEDS ORDERED: nicotine 21mg patch - 24 hr TD SCH (08:00)
[2023-06-29] MEDS: metFORMIN 500mg tablet PO SCH (08:05)
--- NOTE | 2023-06-29 08:08 | NUR ---
Patient sitting up and awaiting breakfast. No distress observed. Patient's BG 127. Continue to monitor.
--- NOTE | 2023-06-29 08:16 | NUR ---
Patient sitting up and eating. No distress observed. Continue to monitor.
--- NOTE | 2023-06-29 08:55 | NUR ---
Kelvin LOCKE, evaluating patient. No distress observed. Patient advised nurse earlier that he was feeling better and wanted to go home. Continue to monitor.
== END 2023-06-29 10:01 | disposition home or self-care (01) ==
LOC: ER 14:23
DX: R45.851 Suicidal ideations (principal); Z20.822 Contact with and (suspected) exposure to COVID-19; J43.9 Emphysema, unspecified; K21.9 Gastro-esophageal reflux disease without esophagitis; F31.9 Bipolar disorder, unspecified; E11.9 Type 2 diabetes mellitus without complications; Z88.5 Allergy status to narcotic agent; Z79.899 Other long term (current) drug therapy; Z79.1 Long term (current) use of non-steroidal anti-inflammatories (NSAID)
CPT/HCPCS: 36415; 80053; 80305; 80320; 81003; 82948; 84443; 85025; 87811; 99285; Q0177

== ENCOUNTER 2023-11-03 21:01 | Emergency (ER) | payer BC ==
[~2023-11-03] VITALS: Ht 175.3 cm; Wt 82.0 kg
[~2023-11-03 21:01] MED LIST changes: -ALBU18HF2 INH; +DIAZ5TAB22 PO; +HYDR-3686 PO; -LANTUS SQ; +METF-900 PO; +OMEP20CA16 PO; +PALI234D IM; -[UNRECOGNIZED DRUG - CODE]
[2023-11-03 21:58] LABS: BASOPHILS # (AUTO) 0.1 X10'3 (0-0.2); BASOPHILS % (AUTO) 0.6 % (0-1); EOSINOPHILS # (AUTO) 0.3 X10'3 (0-0.9); EOSINOPHILS % (AUTO) 3.8 % (0-6); HEMATOCRIT 44.5 % (42.0-52.0); HEMOGLOBIN 15.2 g/dl (14.0-17.9); LYMPHOCYTES # (AUTO) 3.4 X10'3 (1.1-4.8); MEAN CORPUSCULAR HEMOGLOBIN 30.7 PG (27.0-31.0); MEAN CORPUSCULAR HGB CONC 34.2 g/dL (33.0-36.5); MEAN CORPUSCULAR VOLUME 89.8 FL (78-98); MEAN PLATELET VOLUME 6.6 FL (7.4-10.4); MONOCYTES # (AUTO) 0.8 X10'3 (0-0.9); MONOCYTES % (AUTO) 9.5 % (2-12); NEUTROPHILS # (AUTO) 4.1 X10'3 (1.8-7.7); NEUTROPHILS % (AUTO) 47.1 % (42-75); PLATELET COUNT 275 X10'3 (140-440); RED BLOOD COUNT 4.96 X10'6 (4.70-6.10); RED CELL DISTRIBUTION WIDTH 13.2 % (11.5-14.5); WHITE BLOOD COUNT 8.7 X10'3 (4.5-11.0)
[2023-11-03 22:11] LABS: ALANINE AMINOTRANSFERASE 26 U/L (12-78); ALBUMIN 3.5 G/DL (3.4-5.0); ALKALINE PHOSPHATASE 92 IU/L (46-116); ANION GAP 9 (8-16); ASPARTATE AMINO TRANSFERASE 15 U/L (10-37); BILIRUBIN,TOTAL 0.2 MG/DL (0.1-1.0); BLOOD UREA NITROGEN 14 MG/DL (7-18); BUN/CREATININE RATIO 15.2 (10.0-20.0); CALCIUM 8.9 MG/DL (8.5-10.1); CHLORIDE 102 MMOL/L (99-107); CREATININE 0.92 MG/DL (0.60-1.10); GLUCOSE 174 MG/DL (70-104); POTASSIUM 3.5 MMOL/L (3.5-5.1); SODIUM 139 MMOL/L (135-145); TOTAL CARBON DIOXIDE 28.4 MMOL/L (24-32); eGFR 87 ML/MIN
[2023-11-03 22:20] LABS: THYROID STIMULATING HORMONE 1.69 ulU/ml (0.34-4.50)
[2023-11-03 22:23] LABS: ETHANOL < 10 MG/DL (<10)
[2023-11-03 23:02] LABS: URINE AMPHETAMINE SCREEN NEGATIVE (Neg); URINE BARBITUATE SCREEN NEGATIVE (Neg); URINE BENZODIAZEPINES SCREEN POSITIVE (Neg); URINE CANNABINOID SCREEN NEGATIVE (Neg); URINE COCAINE SCREEN NEGATIVE (Neg); URINE METHADONE SCREEN NEGATIVE (Neg); URINE OPIATE SCREEN NEGATIVE (Neg); URINE PHENCYCLIDINE SCREEN NEGATIVE (Neg)
[2023-11-04] MEDS ORDERED: HYDR50TA65 PO (01:06)
[2023-11-04] MEDS ORDERED: DIAZ5TAB5 PO (01:06)
[2023-11-04 06:36] VITALS: BP 90/59; PULSE 98; TEMP 98.7; O2SAT 91
[2023-11-04] MEDS ORDERED: pantoprazole 40mg Tablet.DR PO SCH (07:30)
[2023-11-04 07:35] VITALS: RESP 16
[2023-11-04] MEDS ORDERED: metFORMIN 500mg tablet PO SCH (08:00)
[2023-11-04] MEDS ORDERED: diazepam 5mg tablet PO SCH (08:00)
[2023-11-04] MEDS ORDERED: hydrOXYzine 25 MG tablet PO SCH (21:00)
[2023-11-29] MEDS ORDERED: paliperidone palmitate inj 234 MG/1.5 ML SYRINGE IM SCH (08:00)
== END 2023-11-04 10:25 | disposition home or self-care (01) ==
LOC: ER 21:02
DX: T42.4X2A Poisoning by benzodiazepines, intentional self-harm, initial encounter (principal); Z20.822 Contact with and (suspected) exposure to COVID-19; Y92.89 Other specified places as the place of occurrence of the external cause; K21.9 Gastro-esophageal reflux disease without esophagitis; F31.9 Bipolar disorder, unspecified; F12.10 Cannabis abuse, uncomplicated; Z88.5 Allergy status to narcotic agent; Z79.899 Other long term (current) drug therapy
CPT/HCPCS: 36415; 71045; 80053; 80305; 80320; 84443; 85025; 87811; 93005; 99285; C2617

== ENCOUNTER 2024-01-07 20:11 | Emergency (ER) | payer BC ==
[~2024-01-07] VITALS: Ht 175.3 cm; Wt 127.0 kg
[~2024-01-07 20:11] MED LIST changes: -DIAZ5TAB22 PO; +DIAZ5TAB5 PO; -HYDR-3686 PO; +HYDR50TA65 PO
[2024-01-07 20:50] LABS: BILIRUBIN,URINE NEGATIVE (Neg); CLARITY,URINE CLEAR (Clear); COLOR,URINE STRAW (Yellow); GLUCOSE, URINE NEGATIVE (Neg); KETONES,URINE NEGATIVE (Neg); LEUKOCYTE ESTERASE ,URINE NEGATIVE (Neg); NITRITES, URINE NEGATIVE (Neg); OCCULT BLOOD,URINE NEGATIVE (Neg); PROTEIN,URINE NEGATIVE (Neg); UROBILINOGEN,URINE 0.2 E.U/dL (0.2-1.0)
[2024-01-07 20:50] LABS: BASOPHILS # (AUTO) 0.1 X10'3 (0-0.2); BASOPHILS % (AUTO) 0.7 % (0-1); EOSINOPHILS # (AUTO) 0.3 X10'3 (0-0.9); EOSINOPHILS % (AUTO) 2.5 % (0-6); HEMATOCRIT 44.5 % (42.0-52.0); HEMOGLOBIN 15.3 g/dl (14.0-17.9); LYMPHOCYTES # (AUTO) 3.9 X10'3 (1.1-4.8); LYMPHOCYTES % (AUTO) 35.8 % (21-51); MEAN CORPUSCULAR HEMOGLOBIN 30.4 PG (27.0-31.0); MEAN CORPUSCULAR HGB CONC 34.4 g/dL (33.0-36.5); MEAN CORPUSCULAR VOLUME 88.3 FL (78-98); MEAN PLATELET VOLUME 6.1 FL (7.4-10.4); MONOCYTES # (AUTO) 1.1 X10'3 (0-0.9); MONOCYTES % (AUTO) 10.6 % (2-12); NEUTROPHILS # (AUTO) 5.5 X10'3 (1.8-7.7); NEUTROPHILS % (AUTO) 50.4 % (42-75); PLATELET COUNT 252 X10'3 (140-440); RED BLOOD COUNT 5.03 X10'6 (4.70-6.10); RED CELL DISTRIBUTION WIDTH 13.4 % (11.5-14.5); WHITE BLOOD COUNT 10.8 X10'3 (4.5-11.0)
[2024-01-07 20:53] LABS: UA COLLECTION TYPE CLN CATCH MIDSTREAM
[2024-01-07 21:00] LABS: ALBUMIN 3.6 G/DL (3.4-5.0); ANION GAP 15 (8-16); BLOOD UREA NITROGEN 9 MG/DL (7-18); BUN/CREATININE RATIO 9.1 (10.0-20.0); CALCIUM 8.7 MG/DL (8.5-10.1); CHLORIDE 105 MMOL/L (99-107); CREATININE 0.99 MG/DL (0.60-1.10); GLUCOSE 153 MG/DL (70-104); SODIUM 148 MMOL/L (135-145); TOTAL CARBON DIOXIDE 28.4 MMOL/L (24-32); eCRCL 87 ML/MIN; eGFR 79 ML/MIN
[2024-01-07 21:01] LABS: ETHANOL < 10 MG/DL (<10)
[2024-01-07 21:05] LABS: URINE AMPHETAMINE SCREEN NEGATIVE (Neg); URINE BARBITUATE SCREEN NEGATIVE (Neg); URINE BENZODIAZEPINES SCREEN POSITIVE (Neg); URINE CANNABINOID SCREEN NEGATIVE (Neg); URINE COCAINE SCREEN NEGATIVE (Neg); URINE METHADONE SCREEN NEGATIVE (Neg); URINE OPIATE SCREEN NEGATIVE (Neg); URINE PHENCYCLIDINE SCREEN NEGATIVE (Neg)
[2024-01-07 22:01] LABS: COVID19 ID NOW NEGATIVE (Neg)
[2024-01-08] MEDS: diazepam 5mg tablet PO ONE (00:38)
[2024-01-08] MEDS: potassium Cl 20 mEq SR tablet PO STA (00:38)
[2024-01-08] MEDS: nicotine 14mg patch - 24hr TD ONE (00:39)
[2024-01-08 05:39] VITALS: BP 112/67; PULSE 98; RESP 18; TEMP 97.5; O2SAT 95
== END 2024-01-08 10:32 | disposition home or self-care (01) ==
LOC: ER 20:11
DX: F32.A Depression, unspecified (principal); Z20.822 Contact with and (suspected) exposure to COVID-19; I10 Essential (primary) hypertension; F13.20 Sedative, hypnotic or anxiolytic dependence, uncomplicated
CPT/HCPCS: 36415; 80048; 80305; 80320; 81003; 85025; 87635; 99284

== ENCOUNTER 2024-02-09 15:09 | Emergency (ER) | payer BC, MEDICAID ==
[~2024-02-09] VITALS: Ht 175.3 cm; Wt 83.2 kg
[2024-02-09 15:47] LABS: BASOPHILS % (AUTO) 0.7 % (0-1); EOSINOPHILS # (AUTO) 0.3 X10'3 (0-0.9); HEMATOCRIT 46.8 % (42.0-52.0); HEMOGLOBIN 16.3 g/dl (14.0-17.9); LYMPHOCYTES # (AUTO) 2.7 X10'3 (1.1-4.8); MEAN CORPUSCULAR HEMOGLOBIN 30.7 PG (27.0-31.0); MEAN CORPUSCULAR HGB CONC 34.8 g/dL (33.0-36.5); MEAN CORPUSCULAR VOLUME 88.1 FL (78-98); MEAN PLATELET VOLUME 6.4 FL (7.4-10.4); MONOCYTES # (AUTO) 0.8 X10'3 (0-0.9); MONOCYTES % (AUTO) 12.2 % (2-12); NEUTROPHILS # (AUTO) 2.9 X10'3 (1.8-7.7); NEUTROPHILS % (AUTO) 43.1 % (42-75); PLATELET COUNT 238 X10'3 (140-440); RED BLOOD COUNT 5.32 X10'6 (4.70-6.10); WHITE BLOOD COUNT 6.7 X10'3 (4.5-11.0)
[2024-02-09 16:02] LABS: URINE AMPHETAMINE SCREEN NEGATIVE (Neg); URINE BARBITUATE SCREEN NEGATIVE (Neg); URINE BENZODIAZEPINES SCREEN POSITIVE (Neg); URINE CANNABINOID SCREEN NEGATIVE (Neg); URINE COCAINE SCREEN NEGATIVE (Neg); URINE METHADONE SCREEN NEGATIVE (Neg); URINE OPIATE SCREEN NEGATIVE (Neg); URINE PHENCYCLIDINE SCREEN NEGATIVE (Neg)
[2024-02-09 16:02] LABS: ALBUMIN 3.5 G/DL (3.4-5.0); ANION GAP 8 (8-16); BLOOD UREA NITROGEN 9 MG/DL (7-18); BUN/CREATININE RATIO 10.5 (10.0-20.0); CALCIUM 9.3 MG/DL (8.5-10.1); CHLORIDE 107 MMOL/L (99-107); CREATININE 0.86 MG/DL (0.60-1.10); GLUCOSE 116 MG/DL (70-104); POTASSIUM 3.2 MMOL/L (3.5-5.1); SODIUM 144 MMOL/L (135-145); TOTAL CARBON DIOXIDE 28.6 MMOL/L (24-32); eCRCL 100 ML/MIN; eGFR > 90 ML/MIN
[2024-02-09 16:23] LABS: ETHANOL < 10 MG/DL (<10)
[2024-02-09] MEDS: diazepam 5mg tablet PO ONE (16:41)
[2024-02-09] MEDS: nicotine 21mg patch - 24 hr TD ONE (16:42)
[2024-02-09 17:16] VITALS: BP 98/73; PULSE 77; RESP 16; TEMP 98.3; O2SAT 96
[2024-02-09] MEDS: POTASSIUM BICARB 20meq eff tab 20 MEQ TABLET.EFF PO ONE (18:53)
[2024-02-09] MEDS: Melatonin 3mg tablet PO ONE (20:20)
== END 2024-02-10 09:17 | disposition home or self-care (01) ==
LOC: ER 15:09
DX: R45.851 Suicidal ideations (principal); J44.9 Chronic obstructive pulmonary disease, unspecified; Z20.822 Contact with and (suspected) exposure to COVID-19; K21.9 Gastro-esophageal reflux disease without esophagitis; F31.9 Bipolar disorder, unspecified; F12.10 Cannabis abuse, uncomplicated; E11.9 Type 2 diabetes mellitus without complications
CPT/HCPCS: 36415; 80048; 80305; 80320; 82948; 85025; 87811; 99285; A6446; A6449

== ENCOUNTER 2024-05-07 05:38 | Emergency (ER) | payer MEDICARE, MEDICAID ==
[~2024-05-07] VITALS: Ht 177.8 cm; Wt 80.9 kg
[2024-05-07 05:44] VITALS: BP 119/72; PULSE 123; RESP 16; O2SAT 92
[2024-05-07 06:01] LABS: BASOPHILS % (AUTO) 0.5 % (0-1); EOSINOPHILS # (AUTO) 0.4 X10'3 (0-0.9); EOSINOPHILS % (AUTO) 4.4 % (0-6); HEMATOCRIT 43.4 % (42.0-52.0); HEMOGLOBIN 14.8 g/dl (14.0-17.9); LYMPHOCYTES # (AUTO) 3.4 X10'3 (1.1-4.8); LYMPHOCYTES % (AUTO) 40.4 % (21-51); MEAN CORPUSCULAR HGB CONC 34.1 g/dL (33.0-36.5); MEAN CORPUSCULAR VOLUME 90.9 FL (78-98); MONOCYTES # (AUTO) 0.9 X10'3 (0-0.9); MONOCYTES % (AUTO) 10.5 % (2-12); NEUTROPHILS # (AUTO) 3.8 X10'3 (1.8-7.7); NEUTROPHILS % (AUTO) 44.2 % (42-75); PLATELET COUNT 230 X10'3 (140-440); RED BLOOD COUNT 4.77 X10'6 (4.70-6.10); RED CELL DISTRIBUTION WIDTH 14.1 % (11.5-14.5); WHITE BLOOD COUNT 8.5 X10'3 (4.5-11.0)
[2024-05-07 06:11] LABS: APTT 26 SECONDS (22-32); INR 0.9 INR; PROTHROMBIN TIME 10.2 SECONDS (9.0-12.0)
== END 2024-05-07 06:49 | disposition home or self-care (01) ==
LOC: ER 05:39
DX: S80.812A Abrasion, left lower leg, initial encounter (principal); R53.1 Weakness; R51.9 Headache, unspecified; J45.909 Unspecified asthma, uncomplicated; J44.9 Chronic obstructive pulmonary disease, unspecified; K21.9 Gastro-esophageal reflux disease without esophagitis; E11.9 Type 2 diabetes mellitus without complications; M19.90 Unspecified osteoarthritis, unspecified site; G89.29 Other chronic pain; F41.9 Anxiety disorder, unspecified; F32.A Depression, unspecified; F17.210 Nicotine dependence, cigarettes, uncomplicated; F12.90 Cannabis use, unspecified, uncomplicated; Z88.8 Allergy status to other drugs, medicaments and biological substances; Z79.899 Other long term (current) drug therapy; Z79.84 Long term (current) use of oral hypoglycemic drugs; W18.39XA Other fall on same level, initial encounter; Y93.89 Activity, other specified; Y92.89 Other specified places as the place of occurrence of the external cause; Y99.8 Other external cause status
CPT/HCPCS: 36415; 70450; 71045; 73502; 85025; 85610; 85730; 93005; 99285

== ENCOUNTER 2024-06-02 23:14 | Emergency (ER) | payer MEDICARE, MEDICAID ==
[~2024-06-02] VITALS: Ht 175.3 cm; Wt 81.4 kg
[2024-06-03 00:08] LABS: BASOPHILS % (AUTO) 0.5 % (0-1); EOSINOPHILS # (AUTO) 0.2 X10'3 (0-0.9); EOSINOPHILS % (AUTO) 3.4 % (0-6); HEMATOCRIT 42.7 % (42.0-52.0); HEMOGLOBIN 14.6 g/dl (14.0-17.9); LYMPHOCYTES # (AUTO) 2.5 X10'3 (1.1-4.8); LYMPHOCYTES % (AUTO) 38.4 % (21-51); MEAN CORPUSCULAR HEMOGLOBIN 31.1 PG (27.0-31.0); MEAN CORPUSCULAR HGB CONC 34.1 g/dL (33.0-36.5); MEAN CORPUSCULAR VOLUME 91.2 FL (78-98); MEAN PLATELET VOLUME 6.6 FL (7.4-10.4); MONOCYTES # (AUTO) 0.7 X10'3 (0-0.9); MONOCYTES % (AUTO) 10.7 % (2-12); PLATELET COUNT 232 X10'3 (140-440); RED BLOOD COUNT 4.69 X10'6 (4.70-6.10); RED CELL DISTRIBUTION WIDTH 13.9 % (11.5-14.5); WHITE BLOOD COUNT 6.5 X10'3 (4.5-11.0)
[2024-06-03 00:09] LABS: URINE AMPHETAMINE SCREEN NEGATIVE (Neg); URINE BARBITUATE SCREEN NEGATIVE (Neg); URINE BENZODIAZEPINES SCREEN POSITIVE (Neg); URINE CANNABINOID SCREEN NEGATIVE (Neg); URINE COCAINE SCREEN NEGATIVE (Neg); URINE METHADONE SCREEN NEGATIVE (Neg); URINE OPIATE SCREEN NEGATIVE (Neg); URINE PHENCYCLIDINE SCREEN NEGATIVE (Neg)
[2024-06-03 00:13] LABS: ALBUMIN 3.6 G/DL (3.4-5.0); ANION GAP 9 (8-16); BLOOD UREA NITROGEN 12 MG/DL (7-18); BUN/CREATININE RATIO 14.8 (10.0-20.0); CHLORIDE 106 MMOL/L (99-107); CREATININE 0.81 MG/DL (0.60-1.10); ETHANOL < 10 MG/DL (<10); GLUCOSE 107 MG/DL (70-104); SODIUM 143 MMOL/L (135-145); TOTAL CARBON DIOXIDE 28.2 MMOL/L (24-32); eCRCL 107 ML/MIN; eGFR > 90 ML/MIN
[2024-06-03] MEDS: diazepam 5mg tablet PO ONE (00:23)
[2024-06-03] MEDS: nicotine 21mg patch - 24 hr TD ONE (00:23)
[2024-06-03 07:25] VITALS: RESP 12
[2024-06-03] MEDS: diazepam 5mg tablet PO SCH (09:00)
[2024-06-03] MEDS ORDERED: hydrOXYzine 25 MG tablet PO SCH (21:00)
[2024-06-04] MEDS ORDERED: pantoprazole 40mg Tablet.DR PO SCH (08:00)
[2024-06-28] MEDS ORDERED: paliperidone palmitate inj 234 MG/1.5 ML SYRINGE IM SCH (08:20)
== END 2024-06-03 12:30 | disposition home or self-care (01) ==
LOC: ER 23:15
DX: R45.851 Suicidal ideations (principal); Z20.822 Contact with and (suspected) exposure to COVID-19; J44.9 Chronic obstructive pulmonary disease, unspecified; K21.9 Gastro-esophageal reflux disease without esophagitis; E11.9 Type 2 diabetes mellitus without complications; M19.90 Unspecified osteoarthritis, unspecified site; G89.29 Other chronic pain; F32.A Depression, unspecified; F12.90 Cannabis use, unspecified, uncomplicated; Z88.5 Allergy status to narcotic agent; Z79.899 Other long term (current) drug therapy; Z79.84 Long term (current) use of oral hypoglycemic drugs
CPT/HCPCS: 36415; 80048; 80305; 82948; 85025; 87811; 99285; G0480; 80320

== ENCOUNTER 2024-07-03 14:02 | Emergency (ER) | payer MEDICARE, MEDICAID ==
[~2024-07-03] VITALS: Ht 175.3 cm; Wt 77.2 kg
[~2024-07-03 14:02] MED LIST changes: -METF-900 PO
[2024-07-03 14:47] LABS: BASOPHILS % (AUTO) 0.6 % (0-1); EOSINOPHILS # (AUTO) 0.2 X10'3 (0-0.9); EOSINOPHILS % (AUTO) 4.1 % (0-6); HEMATOCRIT 46.9 % (42.0-52.0); HEMOGLOBIN 16.3 g/dl (14.0-17.9); LYMPHOCYTES # (AUTO) 2.6 X10'3 (1.1-4.8); LYMPHOCYTES % (AUTO) 43.2 % (21-51); MEAN CORPUSCULAR HEMOGLOBIN 32.1 PG (27.0-31.0); MEAN CORPUSCULAR HGB CONC 34.8 g/dL (33.0-36.5); MEAN CORPUSCULAR VOLUME 92.4 FL (78-98); MEAN PLATELET VOLUME 7.1 FL (7.4-10.4); MONOCYTES # (AUTO) 0.5 X10'3 (0-0.9); NEUTROPHILS # (AUTO) 2.6 X10'3 (1.8-7.7); NEUTROPHILS % (AUTO) 43.1 % (42-75); PLATELET COUNT 224 X10'3 (140-440); RED BLOOD COUNT 5.07 X10'6 (4.70-6.10); RED CELL DISTRIBUTION WIDTH 13.5 % (11.5-14.5)
[2024-07-03 14:53] LABS: ALBUMIN 3.5 G/DL (3.4-5.0); ANION GAP 9 (8-16); BLOOD UREA NITROGEN 11 MG/DL (7-18); BUN/CREATININE RATIO 16.2 (10.0-20.0); CALCIUM 9.4 MG/DL (8.5-10.1); CHLORIDE 106 MMOL/L (99-107); CREATININE 0.68 MG/DL (0.60-1.10); ETHANOL < 10 MG/DL (<10); GLUCOSE 163 MG/DL (70-104); POTASSIUM 3.9 MMOL/L (3.5-5.1); SODIUM 141 MMOL/L (135-145); TOTAL CARBON DIOXIDE 26.4 MMOL/L (24-32); eCRCL 127 ML/MIN; eGFR > 90 ML/MIN
[2024-07-03 18:56] VITALS: BP 147/63; PULSE 64; RESP 14; TEMP 98; O2SAT 95
== END 2024-07-03 18:58 | disposition home or self-care (01) ==
LOC: ER 14:03
DX: F32.A Depression, unspecified (principal); F28 Other psychotic disorder not due to a substance or known physiological condition; J45.909 Unspecified asthma, uncomplicated; J44.9 Chronic obstructive pulmonary disease, unspecified; K21.9 Gastro-esophageal reflux disease without esophagitis; E11.9 Type 2 diabetes mellitus without complications; M19.90 Unspecified osteoarthritis, unspecified site; G89.29 Other chronic pain; F41.9 Anxiety disorder, unspecified; F12.90 Cannabis use, unspecified, uncomplicated; Z88.8 Allergy status to other drugs, medicaments and biological substances; Z79.899 Other long term (current) drug therapy; Z20.822 Contact with and (suspected) exposure to COVID-19
CPT/HCPCS: 36415; 80048; 85025; 87811; 99284; G0480; 80320

== ENCOUNTER 2024-07-05 18:39 | Emergency (ER) | payer MEDICARE, MEDICAID ==
[~2024-07-05] VITALS: Ht 175.3 cm; Wt 81.4 kg
[2024-07-05 19:24] LABS: BASOPHILS % (AUTO) 0.6 % (0-1); EOSINOPHILS # (AUTO) 0.2 X10'3 (0-0.9); EOSINOPHILS % (AUTO) 2.4 % (0-6); HEMOGLOBIN 16.4 g/dl (14.0-17.9); LYMPHOCYTES # (AUTO) 3.2 X10'3 (1.1-4.8); MEAN CORPUSCULAR HEMOGLOBIN 31.7 PG (27.0-31.0); MEAN CORPUSCULAR HGB CONC 34.2 g/dL (33.0-36.5); MEAN CORPUSCULAR VOLUME 92.8 FL (78-98); MEAN PLATELET VOLUME 7.1 FL (7.4-10.4); MONOCYTES # (AUTO) 0.8 X10'3 (0-0.9); NEUTROPHILS # (AUTO) 4.3 X10'3 (1.8-7.7); PLATELET COUNT 230 X10'3 (140-440); RED BLOOD COUNT 5.17 X10'6 (4.70-6.10); RED CELL DISTRIBUTION WIDTH 13.6 % (11.5-14.5); WHITE BLOOD COUNT 8.5 X10'3 (4.5-11.0)
[2024-07-05] MEDS: diazepam 5mg tablet PO ONE (19:28)
[2024-07-05] MEDS: nicotine 21mg patch - 24 hr TD ONE (19:30)
[2024-07-05 19:36] LABS: ALBUMIN 3.8 G/DL (3.4-5.0); ANION GAP 10 (8-16); BLOOD UREA NITROGEN 7 MG/DL (7-18); BUN/CREATININE RATIO 9.1 (10.0-20.0); CALCIUM 9.4 MG/DL (8.5-10.1); CHLORIDE 105 MMOL/L (99-107); CREATININE 0.77 MG/DL (0.60-1.10); GLUCOSE 118 MG/DL (70-104); POTASSIUM 3.4 MMOL/L (3.5-5.1); SODIUM 141 MMOL/L (135-145); TOTAL CARBON DIOXIDE 26.1 MMOL/L (24-32); eCRCL 112 ML/MIN; eGFR > 90 ML/MIN
[2024-07-05 19:38] LABS: ETHANOL < 10 MG/DL (<10)
[2024-07-05] MEDS: LORazepam 2 mg/ml vial IM ONE (20:17)
[2024-07-05] MEDS: diphenhydrAMINE 50 mg/ml inj IM ONE (20:17)
[2024-07-05] MEDS: ziprasidone IM 20mg inj **IM only IM ONE (20:33)
[2024-07-05] MEDS: haloperidol lactate 5mg/ml inj IM ONE (20:35)
[2024-07-05] MEDS: potassium Cl 20 mEq SR tablet PO STA (20:54)
[2024-07-06 08:00] LABS: URINE AMPHETAMINE SCREEN NEGATIVE (Neg); URINE BARBITUATE SCREEN NEGATIVE (Neg); URINE BENZODIAZEPINES SCREEN POSITIVE (Neg); URINE CANNABINOID SCREEN POSITIVE (Neg); URINE COCAINE SCREEN NEGATIVE (Neg); URINE METHADONE SCREEN NEGATIVE (Neg); URINE OPIATE SCREEN NEGATIVE (Neg); URINE PHENCYCLIDINE SCREEN NEGATIVE (Neg)
[2024-07-06 08:11] VITALS: TEMP 97.2
[2024-07-06] MEDS: diazepam 5mg tablet PO ONE (10:37)
[2024-07-06 11:08] VITALS: BP 106/81; PULSE 89; RESP 18; O2SAT 96
== END 2024-07-06 11:10 | disposition home or self-care (01) ==
LOC: ER 18:39
DX: F28 Other psychotic disorder not due to a substance or known physiological condition (principal); J45.909 Unspecified asthma, uncomplicated; J44.9 Chronic obstructive pulmonary disease, unspecified; K21.9 Gastro-esophageal reflux disease without esophagitis; E11.9 Type 2 diabetes mellitus without complications; M19.90 Unspecified osteoarthritis, unspecified site; G89.29 Other chronic pain; F41.9 Anxiety disorder, unspecified; F32.A Depression, unspecified; F12.90 Cannabis use, unspecified, uncomplicated; Z20.822 Contact with and (suspected) exposure to COVID-19; Z88.8 Allergy status to other drugs, medicaments and biological substances; Z79.899 Other long term (current) drug therapy
CPT/HCPCS: 36415; 80048; 80305; 85025; 87811; 96372; 99285; G0480; J1200; J2060; J3486; 80320

== ENCOUNTER 2024-07-21 14:44 | Emergency (ER) | payer MEDICARE, MEDICAID ==
[~2024-07-21] VITALS: Ht 175.3 cm; Wt 75.5 kg
[2024-07-21 15:24] LABS: BASOPHILS % (AUTO) 0.4 % (0-1); EOSINOPHILS # (AUTO) 0.1 X10'3 (0-0.9); EOSINOPHILS % (AUTO) 1.3 % (0-6); HEMATOCRIT 47.1 % (42.0-52.0); HEMOGLOBIN 16.1 g/dl (14.0-17.9); LYMPHOCYTES # (AUTO) 1.9 X10'3 (1.1-4.8); LYMPHOCYTES % (AUTO) 22.3 % (21-51); MEAN CORPUSCULAR HEMOGLOBIN 31.4 PG (27.0-31.0); MEAN CORPUSCULAR HGB CONC 34.2 g/dL (33.0-36.5); MEAN CORPUSCULAR VOLUME 91.8 FL (78-98); MEAN PLATELET VOLUME 6.7 FL (7.4-10.4); MONOCYTES # (AUTO) 0.8 X10'3 (0-0.9); MONOCYTES % (AUTO) 9.4 % (2-12); NEUTROPHILS # (AUTO) 5.8 X10'3 (1.8-7.7); NEUTROPHILS % (AUTO) 66.6 % (42-75); PLATELET COUNT 262 X10'3 (140-440); RED BLOOD COUNT 5.12 X10'6 (4.70-6.10); RED CELL DISTRIBUTION WIDTH 13.2 % (11.5-14.5); WHITE BLOOD COUNT 8.7 X10'3 (4.5-11.0)
[2024-07-21 15:38] VITALS: BP 140/94; PULSE 97; TEMP 98.1; O2SAT 97
[2024-07-21 15:45] LABS: ALBUMIN 3.7 G/DL (3.4-5.0); ANION GAP 8 (8-16); BLOOD UREA NITROGEN 3 MG/DL (7-18); BUN/CREATININE RATIO 4.2 (10.0-20.0); CALCIUM 9.4 MG/DL (8.5-10.1); CHLORIDE 108 MMOL/L (99-107); CREATININE 0.72 MG/DL (0.60-1.10); GLUCOSE 144 MG/DL (70-104); POTASSIUM 3.8 MMOL/L (3.5-5.1); PRO BRAIN NATRIURETIC PEPTIDE 84 PG/ML (0-125); SODIUM 143 MMOL/L (135-145); TOTAL CARBON DIOXIDE 27.5 MMOL/L (24-32); eCRCL 120 ML/MIN; eGFR > 90 ML/MIN
[2024-07-21 15:48] VITALS: RESP 12
== END 2024-07-21 17:36 | disposition home or self-care (01) ==
LOC: ER 14:45
DX: R07.9 Chest pain, unspecified (principal); J45.909 Unspecified asthma, uncomplicated; J44.9 Chronic obstructive pulmonary disease, unspecified; K21.9 Gastro-esophageal reflux disease without esophagitis; E11.9 Type 2 diabetes mellitus without complications; M19.90 Unspecified osteoarthritis, unspecified site; G89.29 Other chronic pain; F41.9 Anxiety disorder, unspecified; F32.A Depression, unspecified; F12.90 Cannabis use, unspecified, uncomplicated; Z88.8 Allergy status to other drugs, medicaments and biological substances; Z79.899 Other long term (current) drug therapy
CPT/HCPCS: 36415; 71045; 80048; 83880; 84484; 85025; 93005; 99285

== ENCOUNTER 2024-08-04 22:57 | Emergency (ER) | payer MEDICARE, MEDICAID ==
[~2024-08-04] VITALS: Ht 175.3 cm; Wt 75.5 kg
[2024-08-04 23:43] LABS: BASOPHILS % (AUTO) 0.6 % (0-1); EOSINOPHILS # (AUTO) 0.4 X10'3 (0-0.9); EOSINOPHILS % (AUTO) 4.6 % (0-6); HEMATOCRIT 42.6 % (42.0-52.0); HEMOGLOBIN 14.6 g/dl (14.0-17.9); LYMPHOCYTES # (AUTO) 2.7 X10'3 (1.1-4.8); LYMPHOCYTES % (AUTO) 33.7 % (21-51); MEAN CORPUSCULAR HEMOGLOBIN 31.6 PG (27.0-31.0); MEAN CORPUSCULAR HGB CONC 34.4 g/dL (33.0-36.5); MEAN CORPUSCULAR VOLUME 91.8 FL (78-98); MEAN PLATELET VOLUME 6.4 FL (7.4-10.4); MONOCYTES # (AUTO) 0.7 X10'3 (0-0.9); MONOCYTES % (AUTO) 8.6 % (2-12); NEUTROPHILS # (AUTO) 4.2 X10'3 (1.8-7.7); NEUTROPHILS % (AUTO) 52.5 % (42-75); PLATELET COUNT 239 X10'3 (140-440); RED BLOOD COUNT 4.64 X10'6 (4.70-6.10); RED CELL DISTRIBUTION WIDTH 13.1 % (11.5-14.5)
[2024-08-04 23:54] LABS: ALANINE AMINOTRANSFERASE 19 U/L (12-78); ALBUMIN 3.5 G/DL (3.4-5.0); ALBUMIN/GLOBULIN RATIO 1.1 (1.1-1.5); ALKALINE PHOSPHATASE 79 IU/L (46-116); ANION GAP 8 (8-16); ASPARTATE AMINO TRANSFERASE 12 U/L (10-37); BILIRUBIN,TOTAL 0.2 MG/DL (0.1-1.0); BLOOD UREA NITROGEN 13 MG/DL (7-18); BUN/CREATININE RATIO 17.3 (10.0-20.0); CALCIUM 9.1 MG/DL (8.5-10.1); CHLORIDE 107 MMOL/L (99-107); CREATININE 0.75 MG/DL (0.60-1.10); GLUCOSE 128 MG/DL (70-104); POTASSIUM 3.2 MMOL/L (3.5-5.1); SODIUM 143 MMOL/L (135-145); TOTAL CARBON DIOXIDE 27.9 MMOL/L (24-32); TOTAL PROTEIN 6.8 G/DL (6.4-8.2); eCRCL 115 ML/MIN; eGFR > 90 ML/MIN
[2024-08-05 00:54] LABS: ETHANOL < 10 MG/DL (<10); THYROID STIMULATING HORMONE 3.09 ulU/ml (0.34-4.50)
[2024-08-05 00:57] LABS: ACETAMINOPHEN < 2.0 UG/ML (10-30)
[2024-08-05 01:15] LABS: BILIRUBIN,URINE NEGATIVE (Neg); CLARITY,URINE CLEAR (Clear); COLOR,URINE YELLOW (Yellow); GLUCOSE, URINE NEGATIVE (Neg); KETONES,URINE NEGATIVE (Neg); LEUKOCYTE ESTERASE ,URINE NEGATIVE (Neg); NITRITES, URINE NEGATIVE (Neg); OCCULT BLOOD,URINE NEGATIVE (Neg); PROTEIN,URINE NEGATIVE (Neg); UROBILINOGEN,URINE 0.2 E.U/dL (0.2-1.0)
[2024-08-05 01:16] LABS: UA COLLECTION TYPE URINAL
[2024-08-05 01:22] LABS: URINE AMPHETAMINE SCREEN NEGATIVE (Neg); URINE BARBITUATE SCREEN NEGATIVE (Neg); URINE BENZODIAZEPINES SCREEN POSITIVE (Neg); URINE CANNABINOID SCREEN NEGATIVE (Neg); URINE COCAINE SCREEN NEGATIVE (Neg); URINE METHADONE SCREEN NEGATIVE (Neg); URINE OPIATE SCREEN NEGATIVE (Neg); URINE PHENCYCLIDINE SCREEN NEGATIVE (Neg)
[2024-08-05] MEDS: nicotine 21mg patch - 24 hr TD ONE (01:56)
[2024-08-05] MEDS: olanzapine 10mg tablet PO SCH (01:57)
[2024-08-05 05:58] VITALS: TEMP 97.7
[2024-08-05] MEDS: pantoprazole 40mg Tablet.DR PO SCH (08:16)
[2024-08-05 11:47] VITALS: BP 121/75; PULSE 110; RESP 18; O2SAT 98
== END 2024-08-05 11:55 | disposition home or self-care (01) ==
LOC: ER 22:58
DX: T42.4X2A Poisoning by benzodiazepines, intentional self-harm, initial encounter (principal); Z20.822 Contact with and (suspected) exposure to COVID-19; J44.9 Chronic obstructive pulmonary disease, unspecified; K21.9 Gastro-esophageal reflux disease without esophagitis; E11.9 Type 2 diabetes mellitus without complications; M19.90 Unspecified osteoarthritis, unspecified site; F41.9 Anxiety disorder, unspecified; F32.A Depression, unspecified; F12.90 Cannabis use, unspecified, uncomplicated; Z88.5 Allergy status to narcotic agent; Z88.8 Allergy status to other drugs, medicaments and biological substances; Z79.899 Other long term (current) drug therapy; Y92.89 Other specified places as the place of occurrence of the external cause
CPT/HCPCS: 36415; 80053; 80305; 80329; 81003; 84443; 85025; 87811; 93005; 99285; G0480; 80320

== ENCOUNTER 2024-10-02 18:36 | Emergency (ER) | payer MEDICARE, MEDICAID ==
[~2024-10-02] VITALS: Ht 175.3 cm; Wt 79.5 kg
[~2024-10-02 18:36] MED LIST changes: -DIAZ5TAB5 PO; -HYDR50TA65 PO; -PALI234D IM
[2024-10-02 19:09] LABS: BILIRUBIN,URINE NEGATIVE (Neg); CLARITY,URINE CLEAR (Clear); COLOR,URINE YELLOW (Yellow); GLUCOSE, URINE NEGATIVE (Neg); KETONES,URINE NEGATIVE (Neg); LEUKOCYTE ESTERASE ,URINE NEGATIVE (Neg); NITRITES, URINE NEGATIVE (Neg); OCCULT BLOOD,URINE NEGATIVE (Neg); PROTEIN,URINE NEGATIVE (Neg); UROBILINOGEN,URINE 0.2 E.U/dL (0.2-1.0)
[2024-10-02 19:11] LABS: UA COLLECTION TYPE CLN CATCH MIDSTREAM
[2024-10-02 19:18] LABS: URINE AMPHETAMINE SCREEN NEGATIVE (Neg); URINE BARBITUATE SCREEN NEGATIVE (Neg); URINE BENZODIAZEPINES SCREEN POSITIVE (Neg); URINE CANNABINOID SCREEN NEGATIVE (Neg); URINE COCAINE SCREEN NEGATIVE (Neg); URINE METHADONE SCREEN NEGATIVE (Neg); URINE OPIATE SCREEN NEGATIVE (Neg); URINE PHENCYCLIDINE SCREEN NEGATIVE (Neg)
[2024-10-02 19:20] LABS: BASOPHILS # (AUTO) 0.1 X10'3 (0-0.2); BASOPHILS % (AUTO) 0.7 % (0-1); EOSINOPHILS # (AUTO) 0.3 X10'3 (0-0.9); EOSINOPHILS % (AUTO) 3.5 % (0-6); HEMATOCRIT 45.4 % (42.0-52.0); HEMOGLOBIN 15.3 g/dl (14.0-17.9); LYMPHOCYTES # (AUTO) 3.2 X10'3 (1.1-4.8); LYMPHOCYTES % (AUTO) 43.3 % (21-51); MEAN CORPUSCULAR HEMOGLOBIN 31.4 PG (27.0-31.0); MEAN CORPUSCULAR HGB CONC 33.7 g/dL (33.0-36.5); MEAN CORPUSCULAR VOLUME 93.1 FL (78-98); MEAN PLATELET VOLUME 6.2 FL (7.4-10.4); MONOCYTES # (AUTO) 0.7 X10'3 (0-0.9); MONOCYTES % (AUTO) 9.5 % (2-12); NEUTROPHILS # (AUTO) 3.2 X10'3 (1.8-7.7); PLATELET COUNT 260 X10'3 (140-440); RED BLOOD COUNT 4.88 X10'6 (4.70-6.10); RED CELL DISTRIBUTION WIDTH 13.3 % (11.5-14.5); WHITE BLOOD COUNT 7.3 X10'3 (4.5-11.0)
[2024-10-02 19:44] LABS: ALBUMIN 3.7 G/DL (3.4-5.0); ANION GAP 7 (8-16); BLOOD UREA NITROGEN 13 MG/DL (7-18); BUN/CREATININE RATIO 19.4 (10.0-20.0); CHLORIDE 101 MMOL/L (99-107); CREATININE 0.67 MG/DL (0.60-1.10); ETHANOL < 10 MG/DL (<10); GLUCOSE 111 MG/DL (70-104); POTASSIUM 3.3 MMOL/L (3.5-5.1); SODIUM 137 MMOL/L (135-145); THYROID STIMULATING HORMONE 3.18 ulU/ml (0.34-4.50); TOTAL CARBON DIOXIDE 29.1 MMOL/L (24-32); eCRCL 129 ML/MIN; eGFR > 90 ML/MIN
[2024-10-02] MEDS ORDERED: DIAZ5TAB5 PO (19:56)
[2024-10-02] MEDS ORDERED: PALI234D IM (19:56)
[2024-10-02] MEDS: nicotine 21mg patch - 24 hr TD ONE (20:31)
[2024-10-02] MEDS: diazepam 5mg tablet PO SCH (20:31)
[2024-10-02] MEDS: traZODone 50mg tablet PO SCH (20:31)
[2024-10-03] MEDS: diazepam 5mg tablet PO PRN (07:21)
[2024-10-03] MEDS: pantoprazole 40mg Tablet.DR PO SCH (07:21)
[2024-10-03 11:20] VITALS: BP 134/93; PULSE 78; RESP 16; TEMP 98; O2SAT 95
[2024-10-03] MEDS ORDERED: traZODone 50mg tablet PO SCH (20:00)
== END 2024-10-03 11:46 | disposition home or self-care (01) ==
LOC: ER 18:36
DX: R45.851 Suicidal ideations (principal); E11.9 Type 2 diabetes mellitus without complications; M19.90 Unspecified osteoarthritis, unspecified site; K21.9 Gastro-esophageal reflux disease without esophagitis; J45.909 Unspecified asthma, uncomplicated; J44.9 Chronic obstructive pulmonary disease, unspecified; G89.29 Other chronic pain; F41.9 Anxiety disorder, unspecified; F32.A Depression, unspecified; F12.90 Cannabis use, unspecified, uncomplicated; Z20.822 Contact with and (suspected) exposure to COVID-19; Z88.5 Allergy status to narcotic agent; Z79.899 Other long term (current) drug therapy
CPT/HCPCS: 36415; 80048; 80305; 81003; 84443; 85025; 87811; 99285; G0480; 80320